=== PATIENT | male | born 1950 | race Caucasian/White ===

== ENCOUNTER 2019-11-20 13:07 | Observation (INO) ==
[2019-11-20 13:27] LABS: Basophils # 0.1 K/mm3 (0-0.2); Basophils % 0.4 % (0.1-2.0); Eosinophils # 0.3 K/mm3 (0.0-0.4); Eosinophils % 2.1 % (0.1-12.0); Hematocrit 33.3 % (42.0-52.0); Lymphocytes # 2.4 K/mm3 (0.7-4.5); Lymphocytes % 17.2 % (10-50); Mean Corpuscular HGB Conc 32.9 g/dL (31.8-35.4); Mean Platelet Volume 8.9 fl (7.4-10.4); Monocytes # 0.6 K/mm3 (0.1-1.0); Monocytes % 3.9 % (1.7-9.3); Neutrophils # 10.8 K/mm3 (1.8-7.8); Neutrophils % 76.3 % (37.0-80.0); Platelet Count 248 K/mm3 (142-424); Red Blood Count 3.44 M/mm3 (4.60-6.20); Red Cell Distribution Width 15.9 % (11.5-17.5); White Blood Count 14.2 K/mm3 (4.8-10.8)
[2019-11-20 13:28] LABS: Appearance,Urine TURBID (Clear); Bilirubin,Urine Negative (Negative); Blood, Urine Negative (Negative); Color,Urine YELLOW (Yellow); Glucose,Urine (UA) Negative (Negative); Ketones,Urine Negative (Negative); Leukocyte Esterase,Urine 3+ (Negative); Microscopic, Urine URINE MICROSCOPIC (MICROSCOPIC); PH,Urine 8.5 (5.0-8.5); Protein,Urine 3+ (Negative); Specific Gravity, Urine 1.015 (1.005-1.030); Urobilinogen,Urine 0.2 EU/dl (0.2)
[2019-11-20 13:35] LABS: Calcium 9.6 mg/dl (8.4-10.2)
[2019-11-20 13:38] LABS: Amorphous Sediment,Urine 1+ /lpf; Bacteria,Urine 2+ /lpf; Squamous Epithelial Cell,Urine Occasional #/hpf (0-5)
[2019-11-20 13:40] LABS: Barbiturates Screen,Urine Negative ng/ml (<200)
[2019-11-20 13:41] LABS: Benzodiazepines Screen,Urine Negative ng/ml (<200)
[2019-11-20 13:42] LABS: Amphetamine/Metha Screen,Urine Negative ng/ml (<1000); Methadone Screen,Urine Negative ng/ml (<300)
[2019-11-20 13:43] LABS: Bilirubin,Unconjugated 0.5 mg/dL (0.0-1.1); Cannabinoid Screen,Urine Negative ng/ml (<50); Cocaine Screen,Urine Negative ng/ml (<300)
[2019-11-20 13:44] LABS: Bilirubin,Direct 0.1 mg/dl (0.0-0.4); Bilirubin,Indirect 0.6 mg/dL (0.0-0.9); Bilirubin,Total 0.7 mg/dl (0.2-1.3); Opiate Screen,Urine Negative ng/ml (<300); Total Protein,Serum 6.5 g/dl (6.3-8.2)
[2019-11-20 13:45] LABS: Phencyclidine Screen,Urine Negative ng/ml (<25)
--- NOTE | 2019-11-20 15:12 | Emergency Department Note ---
ED Disposition Clinical Impression: Anemia, Sepsis, Dehydration, Suspected COVID-19 virus infection Disposition: Admitted as Observation Condition on Discharge: Good Additional Instructions: Spoke to Dr. Chery for admission for this patient. Referrals: Provider,Referral, [Primary Care Provider] - - Critical Care Critical Care Time: Yes (25) Attestation: On 11/20/19, the high probability of a clinically significant, sudden or life threatening deterioration of the following system(s) required my full and direct attention, intervention and personal management. The time I documented below is in addition to time spent performing reported procedures but includes the fol lowing listed in this critical care notation. Vital system(s) involved:: Circulatory Failure, Shock (Septic) My critical care processes included: Assessment & monitoring of V/S, Initial and Re-exams, Data Review/Interpretation, Coordinating Care Medical Decision Making - Medical Records Medical records reviewed: Yes: I reviewed the patient's medical records. - [place] Inquiry Pt receiving controlled substance: No Vital Signs: 11/20/19 13:07 11/20/19 13:37 11/20/19 14:07 Pulse Rate [Right Radial] 88 100 H 72 Respiratory Rate 17 17 18 Blood Pressure [Right Arm] 101/56 L 128/69 117/56 L Blood Pressure Mean [Right Arm] 71 88 76 Blood Pressure Source [Right Arm] Automatic Cuff Automatic Cuff Blood Pressure Position [Right Arm] Supine Supine 02 Sat by Pulse Oximetry 98 100 100 Oxygen Delivery Method Room Air Room Air Room Air 11/20/19 15:08 Pulse Rate [Right Radial] 93 H Respiratory Rate 18 Blood Pressure [Right Arm] 132/78 Blood Pressure Mean [Right Arm] 96 Blood Pressure Source [Right Arm] Automatic Cuff Blood Pressure Position [Right Arm] Supine 02 Sat by Pulse Oximetry 97 Oxygen Delivery Method Room Air - Lab Data Lab results reviewed: Yes: I reviewed the patient's lab results. Lab Results 11/20/19 13:10: Urine Color Yellow, Urine Appearance Turbid, Urine pH 8.5, Ur Specific [place] 1.015, Urine Protein 3+, Urine Glucose (UA) Negative, Urine Ketones Negative, Urine Blood Negative, Urine Nitrate Positive, Urine Bilirubin Negative, Urine Urobilinogen 0.2, Ur Leukocyte Esterase 3+ A, Urine RBC None, Urine WBC 10-20, Ur Squamous Epith Cells Occasional, Amorphous Sediment 1+, Urine Bacteria 2+ 11/20/19 13:10: WBC 14.2 H, RBC 3.44 L, Hgb 11.0 L, Hct 33.3 L, MCV 97.0 H, MCH 31.9 H, MCHC 32.9, RDW 15.9, Plt Count 248, MPV 8.9, Neut % (Auto) 76.3, Lymph % (Auto) 17.2, [place] % (Auto) 3.9, Eos % (Auto) 2.1, Baso % (Auto) 0.4, Neut # (Auto) 10.8 H, Lymph # (Auto) 2.4, [place] # (Auto) 0.6, Eos # (Auto) 0.3, Baso # (Auto) 0.1 11/20/19 13:10: Sodium 135 L, Potassium 5.0, Chloride 103, Carbon Dioxide 24, Anion Gap 13.0, BUN 38 H, Creatinine 1.60 H, Estimated Creat Clear 50, Estimated GFR 43 L, Est GFR ( Amer) 52 L, Glucose 288 H, Calcium 9.6, Troponin I 0.02 11/20/19 13:10: Lactate 2.4 H 11/20/19 13:10: Influenza Type A Ag Negative, Influenza Type B Ag Negative 11/20/19 13:10: Total Bilirubin 0.7, Direct Bilirubin 0.1, Conjugated Bilirubin 0.0, Indirect Bilirubin 0.6, Unconjugated Bilirubin 0.5, AST 26, ALT 30, Alkaline Phosphatase 222 H, Total Protein 6.5, Albumin 3.0 L 11/20/19 13:10: Urine Opiates Screen Negative, Urine Methadone Screen Negative, Ur Barbituates Screen Negative, Ur Phencyclidine Scrn Negative, Ur Amphetamines Screen Negative, U Benzodiazepines Scrn Negative, Urine Cocaine Screen Negative, U Marijuana (THC) Screen Negative 11/20/19 13:10: Plasma/Serum Alcohol < 10 11/20/19 13:10: ESR 71 H 11/20/19 13:10: Hemoglobin A1c 7.9 H 11/20/19 13:10: C-Reactive Protein 2.4 Result diagrams: 11/20/19 13:10 11/20/19 13:10 Orders (Tests/Meds): ED MEDICATIONS Generic Name Dose Route Start Last Admin Trade Name Freq PRN Reason Stop Dose Admin Sodium Chloride 1,000 mls @ 999 mls/hr 11/20/19 15:00 11/20/19 14:54 Sod Chlor 0.9% 1000ml Bag IV 11/20/19 16:00 999 mls/hr .Q1H1M BONNIE Administration Ceftriaxone Sodium 1 gm/ 50 mls @ 100 mls/hr 11/20/19 14:53 11/20/19 14:54 Sodium Chloride IV 11/20/19 15:22 100 mls/hr ONCE ONE Administration Protocol Discontinued Medications Generic Name Dose Route Start Last Admin Trade Name Belen PRN Reason Stop Dose Admin Sodium Chloride 500 mls @ 999 mls/hr 11/20/19 13:15 11/20/19 15:01 Sod Chlor 0.9% 1000ml Bag IV 11/20/19 14:15 999 mls/hr .Q31M BONNIE Administration ORDERS Category Date Time Status Troponin I Q3H Lab 11/20/19 16:15 Ordered Troponin I Q3H Lab 11/20/19 19:15 Ordered Blood Culture Stat Micro 11/20/19 14:59 Ordered Urine Culture Stat Micro 11/20/19 13:10 Received - CT Data CT Scan: Head, Abdomen, Pelvis, Chest (Head CT had no acute findings. Chest CT had a groundglass opacities in the periphery on the left lung and a pneumonitis possible in the right lung.) Time Received: 14:00 Preliminary Findings: Abnormal - ECG Data Tracing #1 I reviewed this ECG and interpreted as documented below: Arrhythmias present: sinus tach - Tissue Perfus/Sepsis Re-Eval Sepsis Re-Evaluation Performed: Yes Date Performed: 11/20/19 Time Performed: 15:18 General Adult HPI - General Chief complaint: Weakness Stated complaint: Weakness Time Seen by Provider: 11/20/19 15:00 Mode of Arrival: Wheelchair Source of Information: Patient, Relative Limitations: Altered Mental Status Description of Symptoms (Recalled from ER Triage Doc. by RN): pt reports to ed from dr yeager office with c/o generalize weakness that began today around approx 1100 upon reporting to follow up visit. pt is awake and alert, diaphoretic, pale and with generalized weakness. - History of Present Illness HPI narrative: 69-year-old pleasant gentleman presents to the ED after he was seen in his podiatry office earlier today. He was sent over here due to he was almost unres ponsive and his blood pressure was 60/[address] Palmer's office. Patient was seen Dr. Yeager for a recent amputated toe. The amputation was done approximately 4 weeks ago. This was a traditional follow-up visit. Here in the ED patient is still hypotensive mildly tachycardic however it appears that he is not perfusing well to extremities they are very cold and pale. He is responsive to painful stimuli. The patient's family stated that he is not been feeling well for a few days. They describe him feeling just achy and general malaise. They also states that he has had diarrhea and possible some coughing that is been nonproductive. When I did a heart sternal rub on the patient he was able to answer some questions for me I asked if he was have any pain and he said no. I asked him if he felt short of breath and he says that he has mild shortness of breath. Patient's family told me that he only has diabetes however he is on several meds. They also mentioned that his ejection fraction may have been low at one point. Unknown at this point if patient is febrile given the fact he has been on antipyretics. Patient was discharged from the halfway a few weeks prior. He has had home health nurse come out 2-3 times a week since then. - Related Data Home Medications Medication Instructions Recorded Confirmed Insulin Glargine,Hum.rec.anlog 25 units SQ DAILY 11/20/19 11/20/19 [Lantus Solostar 100 Units/mL 3mL flexpen] aspirin 81 mg tablet,delayed 81 mg PO DAILY tab 11/20/19 11/20/19 release atorvastatin 40 mg tablet 40 mg PO DAILY tab 11/20/19 11/20/19 bumetanide 1 mg tablet 1 mg PO DAILY tab 11/20/19 11/20/19 clopidogrel 75 mg tablet 75 mg PO DAILY tab 11/20/19 11/20/19 pantoprazole 40 mg tablet,delayed 40 mg PO DAILY 11/20/19 11/20/19 release potassium chloride 10 mEq 10 meq PO DAILY 11/20/19 11/20/19 tablet,extended release(part/cryst) tamsulosin 0.4 mg capsule 0.4 mg PO BID 11/20/19 11/20/19 Allergies Allergy/AdvReac Type Severity Reaction Status Date / Time No Known Allergies Allergy Unverified 11/20/19 11:50 [facility] History - Hepatitis A Screen Drug use history?: No High risk sexual behaviors?: No History of sexually transmitted infection?: No Currently employed?: No Childcare worker?: No Do you have indoor plumbing?: Yes Do you have electricity?: Yes Attestation statement:: This patient has been screened for Hepatitis A risk factors. 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 S/P arthrectomy and balloon angioplasty of the left leg 09/2019 - Social History Smoking Status: Former smoker Alcohol Intake: never Occupational Status: disabled Family Hx:: Diabetes, Hypertension ROS Obtained: Yes All systems reviewed & no additional complaints - Constitutional Constitutional: Reports system reviewed and no additional complaints, except as docu - Eyes Eyes: Reports system reviewed and no additional complaints, except as docu - ENT Ears, Nose, Mouth, and Throat: Reports system reviewed and no additional complaints, except as docu - Cardiovascular Cardiovascular: Reports system reviewed and no additional complaints, except as docu - Respiratory Respiratory: Yes system reviewed and no additional complaints, except as docu - Gastrointestinal Gastrointestingal: Reports: system reviewed and no additional complaints, except as docu, loose stools. Denies: abdominal pain - Genitourinary Male Genitourinary: Reports system reviewed and no additional complaints, except as docu - Musculoskeletal Musculoskeletal: Reports system reviewed and no additional complaints, except as docu - Integumentary/Breasts Skin/Breast: Reports system reviewed and no additional complaints, except as docu - Neurologic Neurologic: Reports system reviewed and no additional complaints, except as docu - Endocrine Endocrine: Reports system reviewed and no additional complaints, except as docu - Hematologic/Lymphatic Henatologic/Lymphatic: Reports system reviewed and no additional complaints, except as docu - Allergic/Immunologic Allergic/Immunologic: Reports system reviewed and no additional complaints, except as docu Physical Exam - General General appearance: alert, lethargic, in distress, cachectic - Head Head exam: atraumatic, normocephalic - Eye Eye exam: Present: normal appearance, PERRL, EOMI - ENT ENT exam: Present: normal exam - Neck Neck exam: Present: normal inspection - Chest Chest inspection: Present: normal inspection, symmetric chest wall rise - Respiratory Respiratory exam: Present: normal lung sounds bilaterally, other (Mild wheezing in bilateral bases expiratory) - Cardiovascular Cardiovascular exam: Present: tachycardia. Absent: regular rate - Abdominal Exam Abdominal exam: Present: soft - Extremities Exam Extremities exam: Present: other (Cold pale extremities) - Back Exam Back exam: Present: normal inspection - Neurological Exam Neurological exam: Present: other (Alert with a hard sternal rub) - Psychiatric Psychiatric exam: Present: normal affect - Skin Skin exam: Present: pallor, other (Cold) - Lymphatic Lymphatic Findings: no adenopathy
--- NOTE | 2019-11-20 15:40 | Pharmacy Consult Notes ---
[facility] Pharmacy VTE Monitoring - Patient Demographics Admission date: 11/20/19 Report Date: 11/20/19 Time: 15:40 Allergies/Adverse Reactions: Patient Allergies No Known Allergies Allergy (Unverified 11/20/19 11:50) Height: 1.85 m Weight: 79.379 kg Patient Problems: Current Active Problems Anemia (Acute) Sepsis (Acute) Dehydration (Acute) Suspected COVID-19 virus infection (Acute) - VTE Risk Labs: VTE Related Lab Results Hgb 11.0 g/dL (14.1-18.0) L 11/20/19 13:10 Hct 33.3 % (42.0-52.0) L 11/20/19 13:10 Plt Count 248 K/mm3 (142-424) 11/20/19 13:10 BUN 38 mg/dl (9-20) H 11/20/19 13:10 Creatinine 1.60 mg/dl (0.66-1.25) H 11/20/19 13:10 Estimated Creat Clear 50 mL/min (50-200) 11/20/19 13:10 - Prophylaxis VTE Prophylaxis Ordered?: Yes Types of VTE Prophylaxis: TEDS Knee High Location of Applied Device: Bilateral Lower Extremeties - VTE Diagnosis Confirmed Treatment or plan recommended: Continue Current Treatment
--- NOTE | 2019-11-20 20:01 | History & Physical Report ---
*Admission Date: 11/20/19 *Chief complaint: Hypotension and sepsis *History of present illness: 69-year-old white male with history of systolic congestive heart failure with depressed ejection fraction per family, peripheral arterial disease with recent stenting to the left lower extremity but also with gangrene status post recent forefoot amputation about 6 weeks ago who was in a rehabilitation facility in [facility] but apparently was not participate in rehabilitation and was going to be discharged and his family, 2 sons who live in [facility], came and got him and brought him to their home. About 2 weeks ago he was seen by Dr. Hebert in his office in [place]. Dr. Hebert apparently ordered home health care, and home health care became concerned about his foot wound over the last 3 or 4 days and made a referral through Dr. Hebert to Dr. Flores in our podiatry clinic here who evaluated the patient today during the evaluation patient was significantly hypotensive with blood pressure in the 60s. Transition to the ER. Found to have hypotension that responded very nicely to a fairly low-grade fluid bolus, found to have leukocytosis, and evidence of sepsis. CT scan of head unrevealing, labs were essentially unrevealing except for hyperglycemia-patient is a known diabetic-along with acute kidney injury-unknown baseline creatinine. CT scanning of the chest was read as "groundglass opacity in the right lower lobe probably due to atelectasis" and the emergency department physician swab the patient for coronavirus 19 infection and he was admitted to isolation bed for negative pressure and further therapy. I was contacted to admit the patient given the ER's impression that he was "unattached" and I requested broad-spectrum antibiotics given his recent healthcare exposure, low-dose IV fluids and an echocardiogram to assess his volume status. When I examined patient in the unit and then called his son he informed me about his attachment to Dr. Hebert and the history leading up to the event. Records have been requested from the hospital in [place] where he recently had his procedures done and had his amputation. 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 He denies pain, Denies shortness of air. Reports that he is a little bit fatigued, and reports some mild nausea. Otherwise 10 point review of systems negative. Meds Home Medications Medication Instructions Recorded Confirmed Type Insulin Glargine,Hum.rec.anlog 25 units SQ HS 11/20/19 11/20/19 History [Lantus Solostar 100 Units/mL 3mL flexpen] Sucralfate [Sucralfate 1gm 1 gm PO ACHS 11/20/19 11/20/19 History Tab] aspirin 81 mg tablet,delayed 81 mg PO DAILY tab 11/20/19 11/20/19 History release atorvastatin 40 mg tablet 40 mg PO HS tab 11/20/19 11/20/19 History bumetanide 1 mg tablet 3 mg PO BID tab 11/20/19 11/20/19 History clopidogrel 75 mg tablet 75 mg PO DAILY tab 11/20/19 11/20/19 History pantoprazole 40 mg tablet,delayed 40 mg PO BID 11/20/19 11/20/19 History release potassium chloride 10 mEq 10 meq PO DAILY 11/20/19 11/20/19 History tablet,extended release(part/cryst) tamsulosin 0.4 mg capsule 0.8 mg PO DAILY 11/20/19 11/20/19 History Allergies Allergy/AdvReac Type Severity Reaction Status Date / Time No Known Allergies Allergy Unverified 11/20/19 11:50 Exam Vital signs and Labs for Last 24 Hours: Temp Pulse Resp BP Pulse Ox 97.1 F L 90 18 132/78 100 11/20/19 19:10 11/20/19 18:38 11/20/19 16:15 11/20/19 16:15 11/20/19 15:38 Laboratory Results - last 24 hr 11/20/19 13:10: Urine Color Yellow, Urine Appearance Turbid, Urine pH 8.5, Ur Specific [place] 1.015, Urine Protein 3+, Urine Glucose (UA) Negative, Urine Ketones Negative, Urine Blood Negative, Urine Nitrate Positive, Urine Bilirubin Negative, Urine Urobilinogen 0.2, Ur Leukocyte Esterase 3+ A, Urine RBC None, Urine WBC 10-20, Ur Squamous Epith Cells Occasional, Amorphous Sediment 1+, Urine Bacteria 2+ 11/20/19 13:10: WBC 14.2 H, RBC 3.44 L, Hgb 11.0 L, Hct 33.3 L, MCV 97.0 H, MCH 31.9 H, MCHC 32.9, RDW 15.9, Plt Count 248, MPV 8.9, Neut % (Auto) 76.3, Lymph % (Auto) 17.2, [place] % (Auto) 3.9, Eos % (Auto) 2.1, Baso % (Auto) 0.4, Neut # (Auto) 10.8 H, Lymph # (Auto) 2.4, [place] # (Auto) 0.6, Eos # (Auto) 0.3, Baso # (Auto) 0.1 11/20/19 13:10: Sodium 135 L, Potassium 5.0, Chloride 103, Carbon Dioxide 24, Anion Gap 13.0, BUN 38 H, Creatinine 1.60 H, Estimated Creat Clear 50, Estimated GFR 43 L, Est GFR ( Amer) 52 L, Glucose 288 H, Calcium 9.6, Troponin I 0.02 11/20/19 13:10: Lactate 2.4 H 11/20/19 13:10: Influenza Type A Ag Negative, Influenza Type B Ag Negative 11/20/19 13:10: Total Bilirubin 0.7, Direct Bilirubin 0.1, Conjugated Bilirubin 0.0, Indirect Bilirubin 0.6, Unconjugated Bilirubin 0.5, AST 26, ALT 30, Alkaline Phosphatase 222 H, Total Protein 6.5, Albumin 3.0 L 11/20/19 13:10: Urine Opiates Screen Negative, Urine Methadone Screen Negative, Ur Barbituates Screen Negative, Ur Phencyclidine Scrn Negative, Ur Amphetamines Screen Negative, U Benzodiazepines Scrn Negative, Urine Cocaine Screen Negative, U Marijuana (THC) Screen Negative 11/20/19 13:10: Plasma/Serum Alcohol < 10 11/20/19 13:10: ESR 71 H 11/20/19 13:10: Hemoglobin A1c 7.9 H 11/20/19 13:10: C-Reactive Protein 2.4 11/20/19 17:40: Lactate 1.5 I & O for Last 24 hours: Intake & Output 11/18/19 11/19/19 11/20/19 11/21/19 11:59 11:59 11:59 11:59 Output Total Balance - Weight 171 lb Narrative: Pleasant, awake, alert, vital signs have normalized. Oropharynx clear. No JVD. Lungs have good air movement. Heart rate regular with flow murmur. Abdomen soft nontender. Upper extremities with good pulses. Lower extremities with bandage over the forefoot amputation of the left foot which is clean and dry and intact. Right leg has diminished but present pulses. No edema. Neurologic exam nonfocal Assessment and Plan (1) Anemia Current visit: Yes Status: Acute Category: Medical Code(s): D64.9 - Anemia, unspecified (2) Dehydration Current visit: Yes Status: Acute Category: Medical Code(s): E86.0 - Dehydration (3) Sepsis Current visit: Yes Status: Acute Category: Medical Code(s): A41.9 - Sepsis, unspecified organism Recent halfway stay broad-spectrum antibiotics, blood and urine cultures. Continue sepsis protocol. Patient does not meet criteria for pressors at this point, blood pressure is responded nicely to fluid bolusing. 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 (5) PAD (peripheral artery disease) Current visit: No Status: Chronic Category: Medical Code(s): I73.9 - Peripheral vascular disease, unspecified (6) Wound dehiscence, surgical Current visit: No Status: Chronic Qualifiers: Encounter type: sequela Qualified Code(s): T81.31XS - Disruption of external operation (surgical) wound, not elsewhere classified, sequela Category: Medical Code(s): T81.31XA - Disruption of external operation (surgical) wound, not elsewhere classified, initial encounter DVT prophylaxis. Follow-up with podiatry and wound care as indicated - Assessment and plan all Dx Assessment and Plan for all problems:: Spent over 1 hour reviewing old records, requesting old records and discussing case with family. I reviewed the films personally. I do not feel that patient's lung exam, clinical history or CT scan which to me shows extremely minimal atelectasis- would be indicative of Covid 19/[facility] coronavirus infection. However we will send off a swab and make sure before getting patient out of negative pressure isolation.
--- NOTE | 2019-11-21 08:38 | Progress Note ---
Internal Medicine - PN: Subj *Date: 11/21/19 *Time: 08:36 Interval history: Overnight patient has done very nicely. He is responded to low-dose fluid administration and blood pressures are acceptable. I have had a chance to review old records from his previous hospitalization. Exam Vital signs and Labs for Last 24 Hours: Temp Pulse Resp BP Pulse Ox 98.3 F 88 18 145/75 H 100 11/21/19 07:26 11/21/19 07:26 11/21/19 07:26 11/21/19 07:26 11/21/19 07:26 Laboratory Results - last 24 hr 11/20/19 13:10: Urine Color Yellow, Urine Appearance Turbid, Urine pH 8.5, Ur Specific [place] 1.015, Urine Protein 3+, Urine Glucose (UA) Negative, Urine Ketones Negative, Urine Blood Negative, Urine Nitrate Positive, Urine Bilirubin Negative, Urine Urobilinogen 0.2, Ur Leukocyte Esterase 3+ A, Urine RBC None, Urine WBC 10-20, Ur Squamous Epith Cells Occasional, Amorphous Sediment 1+, Urine Bacteria 2+ 11/20/19 13:10: WBC 14.2 H, RBC 3.44 L, Hgb 11.0 L, Hct 33.3 L, MCV 97.0 H, MCH 31.9 H, MCHC 32.9, RDW 15.9, Plt Count 248, MPV 8.9, Neut % (Auto) 76.3, Lymph % (Auto) 17.2, [place] % (Auto) 3.9, Eos % (Auto) 2.1, Baso % (Auto) 0.4, Neut # (Auto) 10.8 H, Lymph # (Auto) 2.4, [place] # (Auto) 0.6, Eos # (Auto) 0.3, Baso # (Auto) 0.1 11/20/19 13:10: Sodium 135 L, Potassium 5.0, Chloride 103, Carbon Dioxide 24, Anion Gap 13.0, BUN 38 H, Creatinine 1.60 H, Estimated Creat Clear 50, Estimated GFR 43 L, Est GFR ( Amer) 52 L, Glucose 288 H, Calcium 9.6, Troponin I 0.02 11/20/19 13:10: Lactate 2.4 H 11/20/19 13:10: Influenza Type A Ag Negative, Influenza Type B Ag Negative 11/20/19 13:10: Total Bilirubin 0.7, Direct Bilirubin 0.1, Conjugated Bilirubin 0.0, Indirect Bilirubin 0.6, Unconjugated Bilirubin 0.5, AST 26, ALT 30, Alkaline Phosphatase 222 H, Total Protein 6.5, Albumin 3.0 L 11/20/19 13:10: Urine Opiates Screen Negative, Urine Methadone Screen Negative, Ur Barbituates Screen Negative, Ur Phencyclidine Scrn Negative, Ur Amphetamines Screen Negative, U Benzodiazepines Scrn Negative, Urine Cocaine Screen Negative, U Marijuana (THC) Screen Negative 11/20/19 13:10: Plasma/Serum Alcohol < 10 11/20/19 13:10: ESR 71 H 11/20/19 13:10: Hemoglobin A1c 7.9 H 11/20/19 13:10: C-Reactive Protein 2.4 11/20/19 17:40: Lactate 1.5 I & O for Last 24 hours: Intake & Output 11/18/19 11/19/19 11/20/19 11/21/19 11:59 11:59 11:59 11:59 Intake Total 1368 / 1368 Output Total 501 / 501 Balance 867 / 867 Weight 171 lb Microbiology Reports for the Last 24 Hours: Microbiology 11/20/19 13:10 Urine,Clean Catch Urine Culture - Preliminary Gram Negative Rods Narrative: Patient is awake, alert, oriented x3. Somewhat grumpy about hospital food in general. Oropharynx dry but clear, no JVD. He appears older than his stated age with his wizened appearance and gordillo clark and hair. Lungs are clear, good expansion. Heart rate regular. No murmurs or gallops. Abdomen soft, scaphoid. Feet show evidence of old amputation on the right foot, fresh amputation of the left with clean/dry/intact bandage. Please see nurses pictures for details. Diminished pulses in both lower extremities. Neurologic exam intact. 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 Qualified Code(s): E11.40 - Type 2 diabetes mellitus with diabetic neuropathy, unspecified; Z79.4 - community health advisor (current) use of insulin Category: Medical Code(s): E11.40 - Type 2 diabetes mellitus with diabetic neuropathy, unspecified (5) PAD (peripheral artery disease) Current visit: No Status: Chronic Category: Medical Code(s): I73.9 - Peripheral vascular disease, unspecified (6) Wound dehiscence, surgical Current visit: No Status: Chronic Qualifiers: Encounter type: sequela Qualified Code(s): T81.31XS - Disruption of external operation (surgical) wound, not elsewhere classified, sequela Category: Medical Code(s): T81.31XA - Disruption of external operation (surgical) wound, not elsewhere classified, initial encounter - Assessment and plan all Dx Assessment and Plan for all problems:: Patient is nicely improved. Urine is growing greater than 100,000 colonies of gram-negative rods. This is the source of his mild sepsis. We will continue antibiotics and await culture identification. Probably home tomorrow. Remains in respiratory isolation for the very low probability of coronavirus 19 infection.
--- NOTE | 2019-11-21 11:38 | Cardiology Report ---
APPROVED REPORT EXAM: Comprehensive 2D, Doppler, and color-flow Echocardiogram Ironer Hand: Nelli Daugherty CRT Ht: 6 ft 1 in Wt: 175lbs BSA: 2.03 BP: 117/56 mmHg Indications: Diabetes, Reduced EF per pt family, suspected Covid 19, PVD 2D Dimensions LVOT 2.29 cm (M/F) 1.5-2.5 M-Mode Dimensions RVDd 2.38 cm (0.9-2.6)LVDd 5.21 cm (3.5-5.7) LVDs 4.30 cm (3.5-5.7)IVSd 1.79 cm (0.6-1.1) PWd 0.91 cm (0.6-1.1)EF (Teich) 36.10% FS 17.50% EDV (Teich) 130.10 mL ESV (Teich) 83.10 mL Left Ventricle Left atrium is mildly enlarged, left ventricle is normal size, mild concentric left ventricular hypertrophy, visually estimated ejection fraction 40 to 45%, there is mild left ventricular global hypokinesis. Doppler evidence of raise left ventricular end-diastolic pressure, diastolic parameters are inconclusive. Right Ventricle Right atrium right ventricular normal size and contractility. Aortic Valve Aortic valve is minimally thickened and fibrosed. There is no aortic stenosis or aortic insufficiency. Mitral Valve Mitral valve is grossly normal, there is mild mitral regurgitation. Tricuspid Valve Tricuspid valve is grossly normal, there is mild tricuspid regurgitation. Tricuspid regurgitation jet velocity is inadequate for calculation of the right ventricular systolic pressure. Pulmonic Valve Pulmonic valve is poorly visualized., There is mild pulmonic insufficiency. Great Vessels Aortic root is normal size. Pericardium No significant pericardial effusion noted. Conclusion 1. Mildly enlarged left atrium, normal left ventricular size, mild concentric left ventricular hypertrophy, visually estimated ejection fraction 40 to 45%, left ventricle is mildly globally hypokinetic, diastolic parameters are inconclusive, Doppler evidence of raise left ventricular end-diastolic pressure. 2. Mild mitral and tricuspid regurgitation. 3. No significant pericardial effusion noted. Electronically signed by : Remington Berger, 11/21/2019 11:37:49
--- NOTE | 2019-11-22 08:32 | Discharge Summary ---
General - General Admission date:: 11/20/19 Discharge date: 11/22/19 HPI HPI: 69-year-old white male with history of systolic congestive heart failure with depressed ejection fraction per family, peripheral arterial disease with recent stenting to the left lower extremity but also with gangrene status post recent forefoot amputation about 6 weeks ago who was in a rehabilitation facility in [facility] but apparently was not participate in rehabilitation and was going to be discharged and his family, 2 sons who live in [facility], came and got him and brought him to their home. About 2 weeks ago he was seen by Dr. Hebert in his office in [place]. Dr. Hebert apparently ordered home health care, and home health care became concerned about his foot wound over the last 3 or 4 days and made a referral through Dr. Hebert to Dr. Flores in our podiatry clinic here who evaluated the patient today during the evaluation patient was significantly hypotensive with blood pressure in the 60s. Transition to the ER. Found to have hypotension that responded very nicely to a fairly low-grade fluid bolus, found to have leukocytosis, and evidence of sepsis. CT scan of head unrevealing, labs were essentially unrevealing except for hyperglycemia-patient is a known diabetic-along with acute kidney injury-unknown baseline creatinine. CT scanning of the chest was read as "groundglass opacity in the right lower lobe probably due to atelectasis" and the emergency department physician swab the patient for coronavirus 19 infection and he was admitted to isolation bed for negative pressure and further therapy. I was contacted to admit the patient given the ER's impression that he was "unattached" and I requested broad-spectrum antibiotics given his recent healthcare exposure, low-dose IV fluids and an echocardiogram to assess his volume status. When I examined patient in the unit and then called his son he informed me about his attachment to Dr. Hebert and the history leading up to the event. Records have been requested from the hospital in [place] where he recently had his procedures done and had his amputation. Hospital Course Hospital Course: Patient was admitted to negative pressure isolation room because of his pending coronavirus test. Testing for coronavirus 19 was negative by PCR testing. As noted in HPI I reviewed CT scan I do not feel he has any kind of groundglass opacity. Respiratory symptoms were never an issue. He was moved out of the negative pressure room once negative testing came back. Blood cultures and urine cultures were done because of the patient's sepsis, urine culture positive for Providencia species with multiple resistance patterns to Macrobid, and quinolones. They are sensitive to cephalosporins, fortunately. Patient continued on intravenous broad-spectrum antibiotics because of his recent healthcare/fdc exposure. This morning he is doing much better, eating well, in good spirits. Plan will be to discharge patient. He will need follow-up with Dr. Hebert at his family practice office in [place]. He will continue home health care as per [place] home health care services. He will continue wound care, and follow-up with Dr. Yeager's office. In regards to his urinary tract infection I will prescribe Omnicef 300 twice daily for 5 days. He will need BMP and CBC on return to Dr. Hebert's office. In regards to his systolic CHF, his presentation with hypovolemia and hypotension is concerning. He is on a significant dose of Bumex, and I recommended that be cut down to 1 mg twice daily. He is currently on 3 mg twice daily. Ejection fraction here at [facility] had improved from his reported 25% up to 35%. Obviously he will need to have volume status monitored carefully in the outpatient setting. I discussed this with his son Bronson, who will come from [place] today to pick him up to return home. Objective Vital signs: Temp Pulse Resp BP Pulse Ox 97.7 F 86 16 130/70 100 11/22/19 08:00 11/22/19 08:00 11/22/19 08:00 11/22/19 08:00 11/22/19 08:00 Narrative: Patient is alert, pleasant, talkative, no complaints of pain. He notes that the "stinging" in his catheter has gone away. Apparently the stinging sensation started when the catheter was changed by home health a couple of weeks ago. Lungs are clear, heart rate regular. Oropharynx clear, no JVD. Otherwise ENT exam clear. Abdomen nontender, soft Neurologic examination nonfocal, significant loss of sensation in his feet. Vascular exam his feet is abnormal, previously noted wounds and old amputation sites as on admission. Results Labs on day of discharge: Labs from last 24 hours 11/22/19 11/21/19 11/21/19 05:09 23:54 20:30 POC Glucose 110 143 H 167 H COVID-19 ([facility]) 11/21/19 11/21/19 11/21/19 15:19 10:49 05:10 POC Glucose 155 H 133 H 119 H COVID-19 ([facility]) 11/20/19 11/20/19 11/20/19 19:54 16:52 15:42 POC Glucose 209 H 248 H COVID-19 ([facility]) Not detected DS: Diagnosis - Discharge Diagnosis (1) Anemia Status: Chronic (2) Dehydration Status: Resolved (3) Sepsis Status: Resolved (4) Diabetes mellitus with diabetic neuropathy Status: Chronic (5) PAD (peripheral artery disease) Status: Chronic (6) Wound dehiscence, surgical Status: Chronic (7) Systolic congestive heart failure Status: Acute Problem details: Ejection fraction 35%. Discharge Plan - Patient Discharge Instructions ACTIVITY: Continue current activity DIET: low salt diet Patient Instructions: Carbohydrate-Counting Diet, The Importance of Counting Carbs If You Have Diabetes - Follow up Plan Follow up with: Sebastian Hebert MD [Staff Physician] - 1 week Disposition: Home Health Service Home Medications: Home Medications Medication Instructions Recorded Confirmed Type Insulin Glargine,Hum.rec.anlog 25 units SQ HS 11/20/19 11/20/19 History [Lantus Solostar 100 Units/mL 3mL flexpen] Sucralfate [Sucralfate 1gm 1 gm PO ACHS 11/20/19 11/20/19 History Tab] aspirin 81 mg tablet,delayed 81 mg PO DAILY tab 11/20/19 11/20/19 History release atorvastatin 40 mg tablet 40 mg PO HS tab 11/20/19 11/20/19 History clopidogrel 75 mg tablet 75 mg PO DAILY tab 11/20/19 11/20/19 History pantoprazole 40 mg tablet,delayed 40 mg PO BID 11/20/19 11/20/19 History release potassium chloride 10 mEq 10 meq PO DAILY 11/20/19 11/20/19 History tablet,extended release(part/cryst) tamsulosin 0.4 mg capsule 0.8 mg PO DAILY 11/20/19 11/20/19 History Bumetanide 1 mg PO BID #60 tab 11/22/19 Rx Cefdinir [Omnicef 300mg Capsule] 300 mg PO BID #10 cap 11/22/19 Rx Prescriptions/Medication Reconciliation: New Cefdinir [Omnicef 300mg Capsule] 300 mg PO BID #10 cap Continued potassium chloride 10 mEq tablet,extended release(part/cryst) 10 meq PO DAILY pantoprazole 40 mg tablet,delayed release 40 mg PO BID atorvastatin 40 mg tablet 40 mg PO HS tab tamsulosin 0.4 mg capsule 0.8 mg PO DAILY aspirin 81 mg tablet,delayed release 81 mg PO DAILY tab clopidogrel 75 mg tablet 75 mg PO DAILY tab Insulin Glargine,Hum.rec.anlog [Lantus Solostar 100 Units/mL 3mL flexpen] 25 units SQ HS Sucralfate [Sucralfate 1gm Tab] 1 gm PO ACHS Changed Bumetanide 1 mg PO BID #60 tab - Problem Reconciliation Problems Reviewed?: Yes
--- NOTE | 2019-11-22 13:54 | Electrocardiograph Report ---
APPROVED REPORT Exam: Resting ECG HR:90 bpm ECG Measurements Heart Rate 90 AXES ME 182 P 77 QRSd 88 QRS 19 QT 366 T176 QTc 447 <Conclusion> Sinus rhythm with premature atrial complexes with aberrant conduction Inferior infarct, age undetermined Cannot rule out Anterior infarct, age undetermined Abnormal ECG Electronically signed by : Diaz Miles, 11/22/2019 13:53:39
== END 2019-11-22 14:00 | disposition home health service (06) ==
LOC: ER 13:07 → ICU 15:33 → INTOOBSV 16:16 → ICU 16:16 → 2ND 11-21 19:57
PROVIDERS: ADMIT Internal Medicine Adolescent Medicine; ATTEND Internal Medicine Adolescent Medicine
DX: E11.51 Type 2 diabetes mellitus with diabetic peripheral angiopathy without gangrene; E11.65 Type 2 diabetes mellitus with hyperglycemia; I25.10 Atherosclerotic heart disease of native coronary artery without angina pectoris; I50.21 Acute systolic (congestive) heart failure; Z89.432 Acquired absence of left foot; D64.9 Anemia, unspecified; A41.9 Sepsis, unspecified organism; I70.292 Other atherosclerosis of native arteries of extremities, left leg; T81.31XA Disruption of external operation (surgical) wound, not elsewhere classified, initial encounter; N39.0 Urinary tract infection, site not specified; E11.9 Type 2 diabetes mellitus without complications; E86.0 Dehydration; Z87.891 Personal history of nicotine dependence; Z79.4 Long term (current) use of insulin; Z79.899 Other long term (current) drug therapy
CPT/HCPCS: 70450; 71250; 74176; 80048; 80076; 80305; 81001; 82962; 83036; 83605; 84484; 85025; 85651; 86140; 87040; 87086; 87088; 87186; 87275; 87276; 87635; 93005; 93306; 93923; 96365; 96367; 99285; G0378; J1956; J2543; U0002

== ENCOUNTER → 2019-11-25 12:16 | Outpatient (CLI) | payer MEDICARE, SELFPAY ==
--- NOTE | 2019-11-25 12:23 | XR_ITS ---
PROCEDURE: XR FOOT WT BEARING RT 3V CLINICAL INDICATION: DM ulcers Diabetic foot ulcers COMPARISON: No exams were available for comparison FINDINGS: There are no previous exams available for comparison. There has been amputation at the proximal aspect of the 3rd 4th and 5th metatarsals. There is an ununited fracture at the distal aspect of the proximal phalanx of the 2nd digit. A small metallic foreign body which may represent a broken needle is noted in the subcutaneous tissues along the plantar aspect of the interphalangeal joint of the great toe. There is diffuse vascular calcification. Osteoarthritic changes are present at the talonavicular and navicular cuneiform joint and there is some demineralization of the subarticular portion of the talar dome IMPRESSION: 1. Prior amputation at the 3rd 4th and 5th metatarsals with degenerative changes. 2. Ununited fractured distal aspect of the proximal phalanx of the 2nd toe. 3. Foreign body along the plantar surface of the interphalangeal joint which may be due to broken off needle Dictated by: Henrry Cardenas MD 11/25/2019 13:09 Electronically signed by Henrry Cardenas MD in [place] 11/25/2019 13:09
--- NOTE | 2019-11-25 12:23 | XR_ITS ---
PROCEDURE: XR FOOT WT BEARING LT 3V CLINICAL INDICATION: DM ulcers Diabetes, ulceration COMPARISON: No exams were available for comparison FINDINGS: There are no previous exams available for comparison. The patient has had a prior transmetatarsal amputation. The amputation site of the 1st metatarsal has a somewhat jagged appearance. Soft tissue gas is present at this region as well. There is diffuse osteopenia. The remaining metatarsal amputation sites have a smooth appearance. There is diffuse osteopenia with generalized vascular calcification and mild osteoarthritic changes IMPRESSION: Status post transmetatarsal amputation. Irregular appearance of the amputation site at the 1st metatarsal. This could represent underlying osteomyelitis. There is adjacent soft tissue gas consistent with ulceration. Dictated by: Henrry Cardenas MD 11/25/2019 13:06 Electronically signed by Henrry Cardenas MD in [place] 11/25/2019 13:06
== END ==
PROVIDERS: PCP Family Medicine; Visit Provider Podiatrist
DX: Z51.89 Encounter for other specified aftercare (principal); E11.621 Type 2 diabetes mellitus with foot ulcer; L97.518 Non-pressure chronic ulcer of other part of right foot with other specified severity; R09.89 Other specified symptoms and signs involving the circulatory and respiratory systems; Z79.4 Long term (current) use of insulin
CPT/HCPCS: 73630; 87070; 87077; 87186; 87205

== ENCOUNTER → 2019-12-02 09:39 | Outpatient (CLI) | payer MEDICARE, SELFPAY ==
[2019-12-02 10:03] LABS: Basophils % 0.5 % (0.1-2.0); Eosinophils # 0.4 K/mm3 (0.0-0.4); Eosinophils % 5.8 % (0.1-12.0); Hematocrit 30.7 % (42.0-52.0); Hemoglobin 9.6 g/dL (14.1-18.0); Lymphocytes # 1.1 K/mm3 (0.7-4.5); Lymphocytes % 16.8 % (10-50); Mean Corpuscular HGB Conc 31.4 g/dL (31.8-35.4); Mean Corpuscular Hemoglobin 30.7 pg (27.0-31.2); Mean Corpuscular Volume 97.6 fl (80-94); Mean Platelet Volume 9.3 fl (7.4-10.4); Monocytes # 0.4 K/mm3 (0.1-1.0); Neutrophils # 4.8 K/mm3 (1.8-7.8); Neutrophils % 70.9 % (37.0-80.0); Platelet Count 313 K/mm3 (142-424); Red Blood Count 3.15 M/mm3 (4.60-6.20); Red Cell Distribution Width 17.3 % (11.5-17.5); White Blood Count 6.7 K/mm3 (4.8-10.8)
[2019-12-02 10:04] LABS: Chloride 101 mmol/L (98-107); Sodium 133 mmol/L (136-145)
[2019-12-02 10:06] LABS: Alanine Aminotransferase 15 U/L (12-78); Aspartate Amino Transferase 23 U/L (17-59); Blood Urea Nitrogen 22 mg/dl (9-20); Estimated Glomerular Filt Rate 51 ml/min (>60); GFR (African American) 61 ML/MIN (>60)
[2019-12-02 10:07] LABS: Albumin Level 2.9 g/dl (3.5-5.0); Albumin/Globulin Ratio 0.9 (1.1-1.8); Alkaline Phosphatase 114 U/L (38-126); Bilirubin,Total 0.6 mg/dl (0.2-1.3); Calcium 8.7 mg/dl (8.4-10.2); Carbon Dioxide 27 mmol/L (22.0-30.0); Globulin 3.3 g/dL (1.3-3.2); Glucose 155 mg/dl (74-100); Total Protein,Serum 6.2 g/dl (6.3-8.2)
--- NOTE | 2019-12-02 10:13 | MR_ITS ---
PROCEDURE: MR FOOT LT WO/W CON CLINICAL INDICATION: eval for osteomyelitis Recent surgery for osteomyelitis. Pain and swelling, wound dehiscence right lateral foot ulcer, diabetic ulcer, evaluate for osteomyelitis COMPARISON: XR FOOT WT BEARING RT 3V from 11/25/2019 XR FOOT WT BEARING LT 3V from 11/25/2019 TECHNIQUE: Routine multiplanar multi echo sequences are performed without and with gadolinium enhancement. FINDINGS: This exam is very limited technically. The patient was not able to be properly position within the choroidal due to his current limitations. There has been a prior amputation at the proximal transmetatarsal region. Radiograph demonstrated an irregular appearance at the amputation site of the 1st metatarsal. There is dropout of signal at the stump of the amputation site. This particularly affects the region of the distal aspect of the 4th and 5th metatarsals with the distal aspect of the bony stump is not delineated. There is some irregularity of the amputation site at the 1st and 2nd metatarsal but no abnormal bone marrow edema that would suggest osteomyelitis. Soft tissue swelling is present at the amputation site. Of the visualized structures, there is no evidence of abscess. IMPRESSION: Limited exam as detailed above with dropout of signal along the stump of the amputation greatest at the 3rd 4th and 5th metatarsal region. The distal aspect of the remaining 3rd 4th and 5th metatarsals are not adequately demonstrated on the exam. Soft tissues at this area are also not demonstrated. The patient was not able to be properly position within the coil for adequate visualization. There is cellulitis suspected at the amputation stump at the 1st and 2nd metatarsals but no convincing evidence of osteomyelitis. If there is suspected osteomyelitis at the 3rd 4th and 5th metatarsals then, three-phase bone scan may provide further evaluation. Dictated by: Henrry Cardenas MD 12/03/2019 14:34 Electronically signed by Henrry Cardenas MD in [place] 12/03/2019 14:34
[2019-12-02 10:15] LABS: Anion Gap 8.8 mEq/L (5-15); Potassium 3.8 mmoL/L (3.5-5.1)
== END ==
LOC: LAB 09:41
PROVIDERS: Visit Provider Podiatrist
DX: E11.9 Type 2 diabetes mellitus without complications (principal); Z51.89 Encounter for other specified aftercare; T81.31XA Disruption of external operation (surgical) wound, not elsewhere classified, initial encounter; Z87.2 Personal history of diseases of the skin and subcutaneous tissue; Z79.4 Long term (current) use of insulin
CPT/HCPCS: 36415; 73720; 80053; 85025; A9576

== ENCOUNTER 2019-12-03 08:25 | Day surgery (SDC) | payer MEDICARE, SELFPAY ==
[2019-12-03] VITALS (20 sets, daily range): BP systolic 127–184; BP diastolic 64–94; PULSE 80–86; RESP 16–20; TEMP 36.5–36.8; O2SAT 91–100; BMI 24.4
--- NOTE | 2019-12-03 | IR_ITS ---
APPROVED REPORT Patient Location: Outpatient Seismic Observer: AMELIA Ayon RT (R) PROCEDURES Right femoral arterial access Catheter placed in the abdominal aorta Bilateral iliofemoral angiogram Catheter placement in the left superficial femoral artery Left superficial femoral artery selective angiogram with unilateral runoff to the left foot Catheter placement in the right common femoral artery Right common femoral artery retrograde angiogram with unilateral runoff to the right foot Left femoral arterial access Angioplasty to the right anterior tibialis artery INDICATION Toole claudication class IV-V, Peripheral artery disease, Poorly healing lower extremity ulcers with gangrenous toes feet and right calf, Atherosclerosis of the right anterior tibialis artery, Limb threatening ischemia Informed consent was obtained prior to the procedure. COMPLICATIONS none Estimated Blood Loss: less than 10 mls TECHNIQUE 1% lidocaine used to anesthetize right groin the right femoral artery was accessed via the Salinger technique and a 5 Chinese sheath was placed in the right femoral artery. A pigtail catheter was placed in the abdominal aorta and abdominal aortography was performed. Following this a JR4 catheter was then placed in the left superficial femoral artery and superficial femoral artery angiography with unilateral runoff to the left foot was performed. The same catheter was then pulled back into the sheath of the right femoral artery and retrograde angiography was performed with unilateral runoff to the right foot. Following this the apparatus was removed the groin was reprepped gloves were changed sheath was removed good hemostasis was achieved using Perclose device. 1% lidocaine was then used anesthetize the left groin and the left femoral artery was accessed via the Salinger technique. A 5 Chinese sheath was placed in the left femoral artery and the JR4 catheter was used to cannulate the right common iliac artery. Under fluoroscopic guidance the wire was advanced to the right superficial femoral artery. Following this the 5 Chinese sheath was exchanged for a 6 Chinese destination sheath. Therapeutic heparin was administered giving a therapeutic ACT. A 300 cm Choice PT extra-support wire was then placed into the right anterior tibialis artery and a 2.5 x 150 mm balloon was deployed on 2 occasions at 2 minutes in the distal AT as well as the proximal AT. At the end of the procedure there was excellent angiographic results with excellent antegrade flow down the right anterior tibialis artery. At the end of the procedure the apparatus was removed the groin was reprepped gloves were changed sheath was removed good hemostasis was achieved using Perclose device patient was transferred to the postop holding in stable condition ANGIOGRAPHIC RESULTS The distal abdominal aorta bilateral common internal and external iliac arteries are normal. The bilateral common femoral arteries are large caliber and normal. The bilateral profunda femoris arteries are normal. The left superficial femoral artery is widely patent artery with mild atheromatous plaque. The left popliteal artery has mild to moderate [id number] atheromatous plaque nothing greater than 40%. It then gives rise to a widely patent anterior tibialis artery which has multiple punctate 50% eccentric stenoses. There is excellent antegrade flow into the left foot. The left peroneal artery is occluded in the proximal segment. The left posterior tibialis artery has a very proximal 90% stenosis however there is excellent flow distally as it enters the foot The right superficial femoral artery is widely patent and has significant
[2019-12-03 09:14] LABS: Basophils # 0.1 K/mm3 (0-0.2); Basophils % 0.6 % (0.1-2.0); Eosinophils # 0.4 K/mm3 (0.0-0.4); Eosinophils % 5.1 % (0.1-12.0); Hematocrit 31.1 % (42.0-52.0); Lymphocytes # 1.2 K/mm3 (0.7-4.5); Lymphocytes % 15.9 % (10-50); Mean Corpuscular HGB Conc 32.3 g/dL (31.8-35.4); Mean Corpuscular Hemoglobin 31.1 pg (27.0-31.2); Mean Corpuscular Volume 96.3 fl (80-94); Mean Platelet Volume 9.1 fl (7.4-10.4); Monocytes # 0.5 K/mm3 (0.1-1.0); Monocytes % 6.2 % (1.7-9.3); Neutrophils # 5.6 K/mm3 (1.8-7.8); Neutrophils % 72.1 % (37.0-80.0); Platelet Count 327 K/mm3 (142-424); Red Blood Count 3.23 M/mm3 (4.60-6.20); Red Cell Distribution Width 16.9 % (11.5-17.5); White Blood Count 7.8 K/mm3 (4.8-10.8)
[2019-12-03 09:15] LABS: Chloride 105 mmol/L (98-107); Potassium 3.8 mmoL/L (3.5-5.1); Sodium 138 mmol/L (136-145)
[2019-12-03 09:18] LABS: Anion Gap 10.8 mEq/L (5-15); Blood Urea Nitrogen 23 mg/dl (9-20); Calcium 8.7 mg/dl (8.4-10.2); Carbon Dioxide 26 mmol/L (22.0-30.0); Creatinine Clearance Estimated 59 mL/min (50-200); Estimated Glomerular Filt Rate 51 ml/min (>60); GFR (African American) 61 ML/MIN (>60); Glucose 162 mg/dl (74-100)
[2019-12-03 13:21] LABS: CATHL Activated Clotting Time 237 SEC (74-125)
[2019-12-03 14:13] LABS: POC Glucose,Bedside 156 (70-110)
[2019-12-03 17:02] LABS: POC Glucose,Bedside 179 (70-110)
--- NOTE | 2019-12-03 18:48 | PC.NURSE ---
patient has done well since coming to floor. has ate well and slept. pedal pulses noted and palpable. requires max assistance with turns. real draining yellow urine. patient states no bp in l arm. dressings to bilateral groin remain clean of drainage. no signs of hematoma. no complaints. dressings to bilateral feet.
--- NOTE | 2019-12-03 19:14 | PC.NURSE ---
report given to malgorzata
[2019-12-03 21:49] LABS: POC Glucose,Bedside 221 (70-110)
[2019-12-04] VITALS: BP 130/63; PULSE 70; PULSE 78; RESP 16; TEMP 37.1; O2SAT 98
[2019-12-04 04:00] VITALS: PULSE 100; BMI 22.7
[2019-12-04 04:35] VITALS: BP 139/73; PULSE 82; RESP 16; TEMP 37.2; O2SAT 98
[2019-12-04 05:57] LABS: POC Glucose,Bedside 214 (70-110)
--- NOTE | 2019-12-04 06:19 | PC.NURSE ---
A&O X4. PT RESTED WELL WITH EYES CLOSED T/O SHIFT. REFUSED TO BE TURNED BY STAFF Q2H. PT REMAINS NPO AFTER 0000. TOLERATED RA WELL WITH NO COMPLAINTS. DSG TO BLE NOTED C/D/I. REFUSED TEDS AND SCUDS. NSR NOTED ON REFRACTORY TECHNICIAN THIS SHIFT. +1 PULSES NOTED IN BLE. VSS. REMAINS SAFE. CALL LIGHT WITHIN REACH. WILL CONTINUE TO MONITOR.
[2019-12-04 06:38] LABS: Hematocrit 28.4 % (42.0-52.0); Hemoglobin 9.1 g/dL (14.1-18.0)
[2019-12-04 06:51] LABS: Estimated Glomerular Filt Rate 47 ml/min (>60); GFR (African American) 56 ML/MIN (>60)
[2019-12-04 07:03] LABS: Creatinine Clearance Estimated 52 mL/min (50-200)
[2019-12-04 08:00] VITALS: BP 133/69; PULSE 80; PULSE 81; RESP 20; TEMP 36.8; O2SAT 100
--- NOTE | 2019-12-04 09:17 | PC.NURSE ---
left for cathlab
--- NOTE | 2019-12-04 11:04 | PC.NURSE ---
patient will be discharged from cathlab
--- NOTE | 2019-12-04 14:14 | HMH.PHACLD ---
Naila Allred has received discharge medication counseling on the following medications: PATIENT IS ALREADY TAKING LIPITOR, ASPIRIN, AND PLAVIX AT HOME. ZUNILDA AND BETA TAMIA ARE NOT REQUIRED FOR PERIPHERAL STENT. NO NEW PRESCRIPTIONS. PATIENT VERBALIZED UNDERSTANDING AND HAD NO QUESTIONS AT THIS TIME. -MI CARPENTER, PHARMD
== END 2019-12-04 14:00 | disposition home or self-care (01) ==
LOC: CATHLAB 08:28 → 2ND 13:50
PROVIDERS: PCP Family Medicine; Visit Provider Internal Medicine
DX: I70.261 Atherosclerosis of native arteries of extremities with gangrene, right leg (principal); I70.268 Atherosclerosis of native arteries of extremities with gangrene, other extremity; E11.52 Type 2 diabetes mellitus with diabetic peripheral angiopathy with gangrene; Z79.4 Long term (current) use of insulin; I11.0 Hypertensive heart disease with heart failure; I50.22 Chronic systolic (congestive) heart failure; L97.813 Non-pressure chronic ulcer of other part of right lower leg with necrosis of muscle; I77.1 Stricture of artery
CPT/HCPCS: 36415; 37228; 80048; 82565; 82962; 85014; 85018; 85025; 85347; 99152; 99153; C1725; C1760; C1766; C1769; C1894; J1644; Q9966

== ENCOUNTER 2019-12-04 09:04 | Day surgery (SDC) | payer MEDICARE, SELFPAY ==
[2019-12-04] VITALS (13 sets, daily range): BP systolic 133–155; BP diastolic 69–89; PULSE 80–89; RESP 16–17; TEMP 36.8; O2SAT 92–100; BMI 22.6
--- NOTE | 2019-12-04 | IR_ITS ---
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 Flores, she requested opening the posterior tibialis artery in order to improve blood flow to the already infected surgical incision TMA site. Based on her request and patient's medical condition, it was felt improving inline flow to the foot may salvage patients lower extremity. Informed consent was obtained prior to the procedure. COMPLICATIONS NONE Estimated Blood Loss: LESS THAN 10 ML TECHNIQUE 1% lidocaine used anesthetize the right groin the right femoral artery was accessed via the Salinger technique and a 6 Serbian sheath was placed in the right femoral artery. A 4 Serbian JR4 catheter was used to cannulate the left common femoral artery and an advantage wire was advanced distally under fluoroscopic guidance into the left superficial femoral artery. The short 6 Serbian sheath was removed and a long destination 6 Serbian sheath was then advanced ending into the proximal superficial femoral artery. Angiography was performed followed by therapeutic heparin. A Choice PT extra-support wire was placed into the posterior tibialis artery and a 3 mm x 30 mm balloon was deployed at 20 prince for 1 minute reducing the greater than 90% stenosis to less than 30%. After achieving wide patency of the proximal portion of the artery and improving inline flow the apparatus was removed the groin was reprepped gloves were changed sheath was removed good hemostasis was achieved using Perclose device patient was transferred to the postop holding her in stable condition IMPRESSION Successful angioplasty of a severely stenosed left posterior tibialis artery PLAN 1. Xarelto 2.5 twice daily combined with aspirin 81 mg a day 2. Discontinuation of Plavix 3. LDL less than 55 Electronically signed by : Arsenio Maurice, 12/04/2019 10:49:55
[2020-03-15 09:32] LABS: CATHL Activated Clotting Time 374 SEC (74-125)
== END 2019-12-04 14:11 | disposition home or self-care (01) ==
LOC: CATHLAB 09:04
PROVIDERS: PCP Family Medicine; Visit Provider Internal Medicine
DX: I70.262 Atherosclerosis of native arteries of extremities with gangrene, left leg (principal); I70.268 Atherosclerosis of native arteries of extremities with gangrene, other extremity; E11.52 Type 2 diabetes mellitus with diabetic peripheral angiopathy with gangrene; I11.0 Hypertensive heart disease with heart failure; I50.22 Chronic systolic (congestive) heart failure; L97.903 Non-pressure chronic ulcer of unspecified part of unspecified lower leg with necrosis of muscle; Z89.422 Acquired absence of other left toe(s); Z89.421 Acquired absence of other right toe(s); T87.44 Infection of amputation stump, left lower extremity; I77.1 Stricture of artery; Z79.4 Long term (current) use of insulin
CPT/HCPCS: 37228; 85347; 99152; 99153; C1725; C1760; C1766; C1769; C1894; J1644; Q9966

== ENCOUNTER 2019-12-16 16:16 | Observation (INO) | payer MEDICARE, SELFPAY ==
[2019-12-16 16:17] VITALS: BP 116/70; PULSE 83; RESP 20; TEMP 36.8; O2SAT 100; BMI 23.1
--- NOTE | 2019-12-16 16:35 | ECG_ITS ---
APPROVED REPORT Exam: Resting ECG HR:82 bpm ECG Measurements Heart Rate 82 AXES OK 192 P 66 QRSd 94 QRS 26 QT 408 T 52 QTc 476 <Conclusion> Sinus rhythm with fusion complexes Old anterior changes Abnormal ECG Electronically signed by : Diaz Miles, 12/17/2019 16:47:45
--- NOTE | 2019-12-16 16:35 | XR_ITS ---
PROCEDURE: XR CHEST AP CLINICAL HISTORY: weak Generalized weakness COMPARISON: No exams were available for comparison FINDINGS: The cardiomediastinal silhouette and pulmonary vascularity are within normal limits. The lungs are clear without infiltrates, suspicious nodules, or pleural effusions. No acute bony abnormalities. IMPRESSION: No acute findings. Dictated by: Henrry Cardenas MD 12/17/2019 06:43 Electronically signed by Henrry Cardenas MD in [place] 12/17/2019 06:43
--- NOTE | 2019-12-16 16:35 | CT_ITS ---
PROCEDURE: CT ABDOMEN PELVIS W CON CLINICAL INDICATION: hematuria Hematuria COMPARISON: CT ABDOMEN PELVIS WO CON from 11/20/2019 TECHNIQUE: IV Contrast: 75ML OPTIRAY 350 Oral Contrast none Axial images obtained with sagittal and coronal reformats. All CT scans at the facility use one or more dose reduction, viz: automated exposure control, ma/kV adjustment per patient size (including targeted exams where dose is matched to indication, i.e. head), or iterative reconstruction technique. FINDINGS: LOWER THORAX: Paraspinal soft tissue density is noted on the right at the T7, T8, and T9 level. This may only be due to some postinflammatory scarring. MRI with contrast may provide further evaluation if clinically warranted. Coronary artery calcifications are present and there is mild thickening of the distal esophagus which is nonspecific. ABDOMEN & PELVIS: Post cholecystectomy changes. No focal liver lesion. The spleen, adrenal glands, and pancreas have an unremarkable appearance. There is diffuse renal vascular calcification. 2 mm nonobstructing stone is present in the lower pole of the right kidney. No hydronephrosis. No evidence of appendicitis. There is a mild amount of retained colonic feces throughout the colon. A Dash catheter is present. There is thickening the decompressed urinary bladder suspicious for cystitis. Nonspecific mildly enlarged prostate gland. There is diffuse vascular calcification and there is mild anasarca. There are mild degenerative changes in the lumbar spine and there is mild ectasia of the abdominal aorta. IMPRESSION: 1. Constipation. 2. Diffuse thickening of urinary bladder wall suspicious for cystitis or chronic bladder outlet obstruction 3. Slight increased soft tissue density in the right paraspinal region at T7, T8, and T9. This may only be due to some fibrotic change however, inflammatory or infectious etiology is not excluded. MRI of the thoracic spine without and with contrast may provide further evaluation if clinically warranted. 4. Mild anasarca Dictated by: Henrry Cardenas MD 12/17/2019 10:30 Electronically signed by Henrry Cardenas MD in [place] 12/17/2019 10:30
--- NOTE | 2019-12-16 16:36 | CT_ITS ---
PROCEDURE: CT HEAD/BRAIN WO CON CLINICAL INDICATION: ams Altered mental status, altered level consciousness, confusion, disorientation COMPARISON: CT HEAD/BRAIN WO CON from 11/20/2019 TECHNIQUE: Axial images obtained. All CT scans at the facility use one or more dose reduction, viz: automated exposure control, ma/kV adjustment per patient size (including targeted exams where dose is matched to indication, i.e. head), or iterative reconstruction technique. FINDINGS: No midline shift, mass effect, intracranial hemorrhage, hydrocephalus, or extra-axial fluid collection is evident. There is generalized atrophy with hypoattenuation of the periventricular white matter consistent with microangiopathic changes. The calvarium has an unremarkable appearance. No mastoid effusion. There is opacified right maxillary sinus with some increased density of the opacification consistent with chronic sinusitis.. opacified left posterior ethmoid air cells IMPRESSION: 1. No acute intracranial findings. 2. Sinus disease Dictated by: Henrry Cardenas MD 12/17/2019 07:25 Electronically signed by Henrry Cardenas MD in [place] 12/17/2019 07:25
[2019-12-16 16:45] LABS: Basophils # 0.1 K/mm3 (0-0.2); Basophils % 0.9 % (0.1-2.0); Eosinophils # 0.6 K/mm3 (0.0-0.4); Eosinophils % 7.2 % (0.1-12.0); Hematocrit 34.6 % (42.0-52.0); Hemoglobin 11.1 g/dL (14.1-18.0); Lymphocytes # 1.4 K/mm3 (0.7-4.5); Lymphocytes % 17.1 % (10-50); Mean Corpuscular HGB Conc 32.1 g/dL (31.8-35.4); Mean Corpuscular Hemoglobin 31.2 pg (27.0-31.2); Mean Platelet Volume 9.9 fl (7.4-10.4); Monocytes # 0.4 K/mm3 (0.1-1.0); Monocytes % 4.8 % (1.7-9.3); Neutrophils # 5.5 K/mm3 (1.8-7.8); Platelet Count 200 K/mm3 (142-424); Red Blood Count 3.57 M/mm3 (4.60-6.20); Red Cell Distribution Width 15.8 % (11.5-17.5); White Blood Count 7.9 K/mm3 (4.8-10.8)
[2019-12-16 16:47] LABS: Microscopic, Urine URINE MICROSCOPIC (MICROSCOPIC)
[2019-12-16 16:50] LABS: Blood, Urine 3+ (Negative); Glucose,Urine (UA) 3+ (Negative); Ketones,Urine TRACE (Negative); Leukocyte Esterase,Urine 2+ (Negative); Nitrate,Urine POSITIVE (Negative); Protein,Urine 3+ (Negative)
[2019-12-16 16:51] LABS: Alanine Aminotransferase 29 U/L (12-78); Albumin Level 3.1 g/dl (3.5-5.0); Albumin/Globulin Ratio 0.9 (1.1-1.8); Alkaline Phosphatase 126 U/L (38-126); Anion Gap 10.6 mEq/L (5-15); Aspartate Amino Transferase 36 U/L (17-59); Bilirubin,Total 0.6 mg/dl (0.2-1.3); Blood Urea Nitrogen 24 mg/dl (9-20); Calcium 8.5 mg/dl (8.4-10.2); Carbon Dioxide 28 mmol/L (22.0-30.0); Chloride 100 mmol/L (98-107); Creatinine Clearance Estimated 49 mL/min (50-200); Estimated Glomerular Filt Rate 43 ml/min (>60); GFR (African American) 52 ML/MIN (>60); Globulin 3.4 g/dL (1.3-3.2); Glucose 335 mg/dl (74-100); Lactic Acid 1.6 mmol/L (0.7-2.1); Potassium 4.6 mmoL/L (3.5-5.1); Sodium 134 mmol/L (136-145); Total Protein,Serum 6.5 g/dl (6.3-8.2)
[2019-12-16 16:55] LABS: Appearance,Urine Cloudy (Clear); Bilirubin,Urine Negative (Negative); Color,Urine Dark Yellow (Yellow)
[2019-12-16 17:03] LABS: Bacteria,Urine Trace /lpf; RBC,Urine TNTC #/hpf (0-3); Squamous Epithelial Cell,Urine Occasional #/hpf (0-5)
[2019-12-16 17:03] LABS: Troponin I 0.03 ng/ml (0.00-0.034)
--- NOTE | 2019-12-16 18:56 | PC.NURSE ---
Paged Dr. Hebert.
--- NOTE | 2019-12-16 19:21 | PC.NURSE ---
Dr Chavarria on with DR Hebert.
--- NOTE | 2019-12-16 19:27 | HMH.EDAMS ---
ED Disposition Clinical Impression: Altered mental status, UTI (urinary tract infection), Cystitis Disposition: Admitted as Observation Condition on Discharge: Good Instructions: DI for Altered Mental Status Additional Instructions: To Dr. Hebert of admission for this patient for altered mental status and UTI. Referrals: Provider,Referral, [Referring] - - Critical Care Critical Care Time: No Attestation: On 12/16/19, the high probability of a clinically significant, sudden or life threatening deterioration of the following system(s) required my full and direct attention, intervention and personal management. The time I documented below is in addition to time spent performing reported procedures but includes the following listed in this critical care notation. Medical Decision Making - Medical Records Medical records reviewed: Yes: I reviewed the patient's medical records. - Aston Inquiry Pt receiving controlled substance: No Vital Signs: 12/16/19 16:17 Temperature 98.2 F Temperature Source Oral Pulse Rate [Right] 83 Respiratory Rate 20 Blood Pressure [Right Arm] 116/70 Blood Pressure Mean [Right Arm] 85 02 Sat by Pulse Oximetry 100 - Lab Data Lab results reviewed: Yes: I reviewed the patient's lab results. Lab Results 12/16/19 16:35: WBC 7.9, RBC 3.57 L, Hgb 11.1 L, Hct 34.6 L, MCV 97.0 H, MCH 31.2, MCHC 32.1, RDW 15.8, Plt Count 200, MPV 9.9, Neut % (Auto) 70.0, Lymph % (Auto) 17.1, [place] % (Auto) 4.8, Eos % (Auto) 7.2, Baso % (Auto) 0.9, Neut # (Auto) 5.5, Lymph # (Auto) 1.4, [place] # (Auto) 0.4, Eos # (Auto) 0.6 H, Baso # (Auto) 0.1 12/16/19 16:35: Sodium 134 L, Potassium 4.6, Chloride 100, Carbon Dioxide 28, Anion Gap 10.6, BUN 24 H, Creatinine 1.60 H, Estimated Creat Clear 49, Estimated GFR 43 L, Est GFR ( Amer) 52 L, Glucose 335 H, Calcium 8.5, Total Bilirubin 0.6, AST 36, ALT 29, Alkaline Phosphatase 126, Troponin I 0.03, Total Protein 6.5, Albumin 3.1 L, Globulin 3.4 H, Albumin/Globulin Ratio 0.9 L 12/16/19 16:35: Lactate 1.6 12/16/19 16:46: Urine Color Dark yellow, Urine Appearance Cloudy, Urine pH 7.0, Ur Specific [place] 1.020, Urine Protein 3+, Urine Glucose (UA) 3+, Urine Ketones Trace, Urine Blood 3+, Urine Nitrate Positive, Urine Bilirubin Negative, Urine Urobilinogen 4.0, Ur Leukocyte Esterase 2+ A, Urine RBC Tntc, Urine WBC 5-10, Ur Squamous Epith Cells Occasional, Urine Bacteria Trace Result diagrams: 12/16/19 16:35 12/16/19 16:35 Orders (Tests/Meds): ED MEDICATIONS Generic Name Dose Route Start Last Admin Trade Name Freq PRN Reason Stop Dose Admin Sodium Chloride 1,000 mls @ 999 mls/hr 12/16/19 16:45 12/16/19 17:02 Sod Chlor 0.9% 1000ml Bag IV 12/16/19 17:45 999 mls/hr .Q1H1M BONNIE Administration Discontinued Medications Generic Name Dose Route Start Last Admin Trade Name Freq PRN Reason Stop Dose Admin Ioversol 50 ml 12/16/19 17:36 12/16/19 17:37 Rad-Optiray 350 100ml Vial IV 12/16/19 17:37 50 ml ONCE ONE Administration Protocol Sodium Chloride 10 ml 12/16/19 17:36 12/16/19 17:37 Rad-Saline Flush 10ml Syringe IV 12/16/19 17:37 10 ml ONCE ONE Administration ORDERS Category Date Time Status CT abdomen pelvis w con Stat Cat Scan 12/16/19 16:[address] head/brain wo con Stat Cat Scan 12/16/19 16:36 Taken XR chest AP Stat Exams 12/16/19 16:35 Taken Troponin I Q3H Lab 12/16/19 19:45 Ordered Troponin I Q3H Lab 12/16/19 22:45 Ordered Blood Culture Stat Micro 12/16/19 17:30 Received Urine Culture Stat Micro 12/16/19 16:46 Received ECG Request by /Nse Stat Y 12/16/19 16:35 Ordered - CT Data CT Scan: Head, Abdomen Time Received: 19:00 Preliminary Findings: Normal/NAD Findings Narrative: CT patient's head was within normal limits however CT of the abdomen did show some thickening of the bladder which would could be consistent with cystitis Altered Mental Status HPI - General Chief Complai
[2019-12-16 19:59] VITALS: BP 112/75; PULSE 95; RESP 16; TEMP 36.9; O2SAT 100
[2019-12-16 20:12] VITALS: BP 152/86; PULSE 98; RESP 18; TEMP 36.5; O2SAT 98; BMI 21.8
--- NOTE | 2019-12-16 20:12 | PC.NURSE ---
pt arrived to floor via stretcher from ED
[2019-12-17 00:52] LABS: POC Glucose,Bedside 342 (70-110)
--- NOTE | 2019-12-17 03:28 | PC.NURSE ---
Pt A&O x2. Thin stature. Arrived to floor with DSGs to BLE. F/C in place with dark abhay to tea colored urine. Pt is incontinent of stools. Had one small loose brown stool this shift. Pt stated that he can not turn himself and needs to be turned every two hrs. Pt was asked, who turns him at home and he stated his son DESTINEY. Pt was given Bath per staff. Repositioned Q2 and/or as pt allowed. VSS. Medication administered per mar. Will continue to monitor.
[2019-12-17 04:00] VITALS: BP 152/80; PULSE 87; RESP 20; TEMP 36.7; O2SAT 100
[2019-12-17 05:42] VITALS: BMI 21.8
[2019-12-17 07:13] LABS: Basophils % 0.5 % (0.1-2.0); Eosinophils # 0.5 K/mm3 (0.0-0.4); Lymphocytes # 1.3 K/mm3 (0.7-4.5); Lymphocytes % 21.5 % (10-50); Mean Corpuscular HGB Conc 32.4 g/dL (31.8-35.4); Mean Corpuscular Hemoglobin 30.9 pg (27.0-31.2); Mean Corpuscular Volume 95.4 fl (80-94); Mean Platelet Volume 9.4 fl (7.4-10.4); Monocytes # 0.4 K/mm3 (0.1-1.0); Monocytes % 6.5 % (1.7-9.3); Neutrophils # 3.7 K/mm3 (1.8-7.8); Neutrophils % 63.4 % (37.0-80.0); Platelet Count 175 K/mm3 (142-424); Red Blood Count 3.25 M/mm3 (4.60-6.20); Red Cell Distribution Width 15.7 % (11.5-17.5); White Blood Count 5.9 K/mm3 (4.8-10.8)
[2019-12-17 07:18] LABS: Chloride 104 mmol/L (98-107); Potassium 3.7 mmoL/L (3.5-5.1); Sodium 137 mmol/L (136-145)
--- NOTE | 2019-12-17 07:18 | P.CONPHA_ITS ---
[facility] Pharmacy VTE Monitoring - Patient Demographics Admission date: 12/16/19 Report Date: 12/17/19 Time: 07:18 Allergies/Adverse Reactions: Patient Allergies No Known Allergies Allergy (Verified 12/16/19 15:42) Height: 1.83 m Weight: 73.113 kg Patient Problems: Current Active Problems Altered mental status (Acute) UTI (urinary tract infection) (Acute) Cystitis (Acute) - VTE Risk Labs: VTE Related Lab Results Hgb 10.0 g/dL (14.1-18.0) L 12/17/19 06:36 Hct 31.0 % (42.0-52.0) L 12/17/19 06:36 Plt Count 175 K/mm3 (142-424) 12/17/19 06:36 BUN 24 mg/dl (9-20) H 12/16/19 16:35 Creatinine 1.60 mg/dl (0.66-1.25) H 12/16/19 16:35 Estimated Creat Clear 49 mL/min (50-200) 12/16/19 16:35 Was VTE Risk Assessment Performed: Yes VTE Score: 8 VTE Risk Level: Moderate Risk - Prophylaxis VTE Prophylaxis Ordered?: Yes Types of VTE Prophylaxis: TEDS Knee High Location of Applied Device: Bilateral Lower Extremeties - VTE Diagnosis Confirmed Treatment or plan recommended: Continue Current Treatment
[2019-12-17 07:21] LABS: Alanine Aminotransferase 25 U/L (12-78); Albumin Level 2.7 g/dl (3.5-5.0); Albumin/Globulin Ratio 0.9 (1.1-1.8); Alkaline Phosphatase 102 U/L (38-126); Anion Gap 9.7 mEq/L (5-15); Aspartate Amino Transferase 29 U/L (17-59); Bilirubin,Total 0.5 mg/dl (0.2-1.3); Blood Urea Nitrogen 21 mg/dl (9-20); Calcium 8.1 mg/dl (8.4-10.2); Carbon Dioxide 27 mmol/L (22.0-30.0); Creatinine Clearance Estimated 57 mL/min (50-200); Estimated Glomerular Filt Rate 55 ml/min (>60); GFR (African American) 67 ML/MIN (>60); Globulin 3.1 g/dL (1.3-3.2); Glucose 242 mg/dl (74-100); Total Protein,Serum 5.8 g/dl (6.3-8.2)
[2019-12-17 08:00] VITALS: BP 147/77; PULSE 83; RESP 17; TEMP 36.4; O2SAT 100
--- NOTE | 2019-12-17 08:21 | HMH.PHAINT ---
HOME MEDICATION RECONCILIATION ATTEMPTED USING LIST FROM [facility], DR SPENCE'S MOST RECENT PROGRESS NOTE AND LIST FROM [facility]. PT A POOR HISTORIAN AND PHARMACY BOTTLES UNAVAILABLE. PT NO LONGER TAKES PLAVIX AND HAS BEEN CHANGED TO XARELTO 2.5MG DAILY ALONG WITH ASPIRIN 81MG DAILY.
--- NOTE | 2019-12-17 09:03 | HMH.HP ---
*Admission Date: 12/16/19 <Sri Mckeon 12/17/19 09:09> *Chief complaint: headache, dizziness <Sri Mckeon 12/17/19 09:09> *History of present illness: Mr. Allred is a 69-year-old male with a history of diabetes, PVD, and CHF. He was recently discharged from & after an admission to Dr. Miles's service with sepsis, hypovolemia, and UTI. He followed up in the office of [facility] on 11/27/2019 and had completed a course of Omnicef and was feeling better. He still had his Dash catheter. He was also being followed by Dr. Flores to assess wound healing from his recent transmetatarsal amputation. The patient states he began feeling poorly the last few days. He developed a headache and some dizziness and according to his family, had some altered mental status. He also had an insertion of a Dash catheter that took place at his home yesterday by home health. They noticed that there was a large amount of blood in his urine. He was brought to the ER for evaluation and he was felt to have a UTI and was admitted. This a.m. he states he feels slightly better. His headache and dizziness have improved. <Sri Mckeon 12/17/19 09:09> [facility] History I have reviewed the patient's past medical history: Yes <Sri Mckeon 12/17/19 09:09> Medical History: Reports:: Atherosclerotic Heart Disease, BPH, Congestive Heart Failure, Cerebrovascular Accident, Diabetes Mellitus Type 2, Gastroesophageal Reflux Disease(GERD), Hyperlipidemia, Peripheral Artery Disease, Peripheral Vascular Disease, Renal Disease, Renal Insufficiency Denies:: Cancer, Internal Pacemaker <Sri Mckeon 12/17/19 09:09> *Have you ever received a pneumonia vaccine?: No <Sri Mckeon 12/17/19 09:09> *Have you received a flu vaccine this season?: No <Sri Mckeon 12/17/19 09:09> Other Medical History: Reports: Arthritis <Sri Mckeon 12/17/19 09:09> Other Surgeries: Yes: Angiogram, Appendectomy, Cardiac Catheterization, Cholecystectomy. 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) <Sri Mckeon 12/17/19 09:09> Fractures: No <Sri Mckeon 12/17/19 09:09> - *Social History Educational Level: Completed High School <Sri Mckeon 12/17/19 09:09> Smoking Status: Former smoker <Sri Mckeon 12/17/19 09:09> Tobacco Type: smokeless tobacco <Sri Mckeon 12/17/19 09:09> # Packs/Day (cigarettes): 1 <Sri Mckeon 12/17/19 09:09> #Yrs smoked (if former smoker): 25 <Sri Mckeon 12/17/19 09:09> Alcohol Intake: former <Sri Mckeon 12/17/19 09:09> *Occupational Status:: retired <Sri Mckeon 12/17/19 09:09> Housing: house <Sri Mckeon 12/17/19 09:09> Household Members: family <Sri Mckeon 12/17/19 09:09> *Travel in the last 8 weeks: Inside the [place] <Sri Mckeon 12/17/19 09:09> Family Hx:: Cancer, Coronary Artery Disease, Diabetes, Heart Attack, Hyperlipidemia, Hypertension, Alcoholism <Sri Mckeon 12/17/19 09:09> Review of Systems - Constitutional Reports headache(s), Reports weakness, Denies chills, Denies fever(s) <Sri Mckeon 12/17/19 09:09> - Eyes Denies blurry vision, Denies double vision <Sri Mckeon 12/17/19 09:09> - ENT Denies nasal congestion, Denies sore throat <Sri Mckeon 12/17/19 09:09> - *Cardiovascular Denies chest pain, Denies shortness of breath, Denies leg swelling <Sri Mckeon 12/17/19 09:09> - *Respiratory Denies cough, Denies shortness of breath <Sri Mckeon 12/17/19 09:09> - *Gastrointestinal Denies abdominal pain, Denies loose stools, Denies nausea, Denies vomiting <Sri Mckeon 12/17/19 09:09> - *Genitourinary Denies difficulty urinating, Denies painful urination <Sri Mckeon 12/17/19 09:09> - *Musculoskeletal Denies joint pain <Sri Mckeon 12/17/19 09:09> - *Neurologic Reports headache(s), Reports dizziness, Reports weakness <Sri Mckeon 12/17/19 09:09>
[2019-12-17 11:27] LABS: POC Glucose,Bedside 238 (70-110)
[2019-12-17 14:01] VITALS: BMI 21.8
--- NOTE | 2019-12-17 14:34 | HMH.PTEV ---
Physical Therapy Evaluation Rehab PT IP Evaluation Start: 12/17/19 13:02 Freq: ONCE Status: Active Protocol: Document 12/17/19 14:25 CHAMP (Rec: 12/17/19 14:34 [id number]) Subjective/History History History Mr. Allred is a 69-year-old male with a history of diabetes, PVD, and CHF. He was recently discharged from & after an admission to Dr. Miles's service with sepsis, hypovolemia, and UTI. He followed up in the office of [facility] on 2019 and had completed a course of Omnicef and was feeling better. He still had his Dash catheter. He was also being followed by Dr. Flores to assess wound healing from his recent transmetatarsal amputation. The patient states he began feeling poorly the last few days. He developed a headache and some dizziness and according to his family, had some altered mental status. He also had an insertion of a Dash catheter that took place at his home yesterday by home health. They noticed that there was a large amount of blood in his urine. He was brought to the ER for evaluation and he was felt to have a UTI and was admitted. Subjective Subjective Pt reports he has not ambulated for ~ 6-8 weeks due to weakness and TMA of L foot - pt has 3 toe amputations on R - pt reports he lives w/ son and some puts him in a wheelchair before he goes to work. Pt does state that daughter in law is there w/ him. Rehab PT IP Eval Objective Appearance Patient Behavior Appropriate,Cooperative, Dependent Patient Orientation Person,Place,Time Difficulty following instructions none Speech Pattern
[2019-12-17 15:46] VITALS: BP 147/79; PULSE 85; RESP 16; TEMP 36.7; O2SAT 99
[2019-12-17 19:43] VITALS: BP 148/83; PULSE 86; RESP 16; TEMP 37.1; O2SAT 100
--- NOTE | 2019-12-17 19:46 | PC.NURSE ---
Santyl ointment not available in house for pt's dressing change tonportia. Received okay from Dr. Flores via telephone that it was okay to continue w/ dressing by only placing betadine soaked 4x4 instead w/ clean dressing.
--- NOTE | 2019-12-17 23:18 | PC.NURSE ---
PT REFUSED HIS LANTUS FLEXPEN THIS HS. PT STATES HE ONLY TAKES 10 UNITS AT HOME AND DOES NOT WANT TO TAKE 25 UNITS . HE ALSO STATED TO THIS RN THAT IF HIS GLU DROPS BELOW 150 HE BECOMES HYPOGLYCEMIC QUICKLY, THEREFORE THE 4 UNITS OF SHORT ACTING WOULD BE ENOUGH FOR HIM TONIGHT . FS GLU THIS HS NOTED AT 230.
[2019-12-18 00:54] LABS: POC Glucose,Bedside 230 (70-110)
[2019-12-18 00:54] LABS: POC Glucose,Bedside 241 (70-110)
--- NOTE | 2019-12-18 02:57 | PC.NURSE ---
A&O X4. PT RESTED WELL WITH EYES CLOSED T/O SHIFT. REFUSED TO BE TURNED BY STAFF AFTER 0000. HE STATED TO TECH THAT HE JUST WANTED TO BE LEFT ALONE . THIS RN HAS NOTICED PT IS ABLE TO SLIGHTLY TURN ON HIS SIDE INDEPENDENTLY. WILL REEDUCATE IMPORTANCE OF Q2H TURNS WITH PT IN AM UPON WAKENING. BILATERAL LUNGS NOTED CLEAR UPON AUSCULTATION. TOLERATED RA WELL WITH NO COMPLAINTS. FC SITE NOTED C/D/I. URINE NOTED CLEAR, BRIGHT YELLOW URINE. BM THIS SHIFT, INCONTINENT OF BOWEL. DSG'S TO BLE NOTED WITH DRIED BETADINE FROM DSG CHANGE ON PREVIOUS SHIFT. REMAINS C/D/I. ELEVATED BLE ON PILLOWS TO RELIEVE PRESSURE FROM MATTRESS. VSS. REMAINS SAFE. REFUSED TEDS. CALL LIGHT WITHIN REACH. WILL CONTINUE TO MONITOR.
[2019-12-18 03:36] VITALS: BP 145/76; PULSE 63; RESP 20; TEMP 36.6; O2SAT 100
[2019-12-18 05:08] VITALS: BMI 22.2
[2019-12-18 06:25] LABS: POC Glucose,Bedside 162 (70-110)
[2019-12-18 08:00] VITALS: BP 143/75; PULSE 87; RESP 17; TEMP 36.5; O2SAT 100
--- NOTE | 2019-12-18 08:12 | HMH.ACPN2 ---
<Sri Mckeon - Last Filed: 12/18/19 08:12> Internal Medicine - PN: Subj *Date: 12/18/19 *Time: 08:12 Interval history: Patient states he is very tired today. He says he tried to sleep last night but was awakened by nursing staff. He denies any pain today. He states he did eat a good breakfast. Exam Vital signs and Labs for Last 24 Hours: Temp Pulse Resp BP Pulse Ox 97.7 F 87 17 143/75 H 100 12/18/19 08:00 12/18/19 08:00 12/18/19 08:00 12/18/19 08:00 12/18/19 08:00 Laboratory Results - last 24 hr 12/16/19 16:46: Urine Color Dark yellow, Urine Appearance Cloudy, Urine pH 7.0, Ur Specific [place] 1.020, Urine Protein 3+, Urine Glucose (UA) 3+, Urine Ketones Trace, Urine Blood 3+, Urine Nitrate Positive, Urine Bilirubin Negative, Urine Urobilinogen 4.0, Ur Leukocyte Esterase 2+ A, Urine RBC Tntc, Urine WBC 5-10, Ur Squamous Epith Cells Occasional, Urine Bacteria Trace 12/17/19 11:08: POC Glucose 238 H 12/17/19 17:58: POC Glucose 241 H 12/17/19 22:09: POC Glucose 230 H 12/18/19 06:01: POC Glucose 162 H I & O for Last 24 hours: Intake & Output 12/15/19 12/16/19 12/17/19 12/18/19 11:59 11:59 11:59 11:59 Intake Total 1069 / 1069 1080 / 1080 Output Total 1550 / 1550 1325 / 1325 Balance -481 / -481 -245 / -245 Weight 161 lb 2.985 oz 164 lb 0.982 oz Microbiology Reports for the Last 24 Hours: Microbiology 12/16/19 16:46 Urine,Clean Catch Urine Culture - Final Providencia stuartii - Constitutional no acute distress - *Routine Respiratory Exam Present: CTA bilaterally - *Routine Cardiovascular Exam Present: RRR - *Routine Abdominal Exam Present: soft, normoactive bowel sounds. Absent: tenderness - *Routine Extremities Exam Absent: cyanosis, clubbing, edema - *Routine Skin Exam Comments: both legs with bandages, they have purulent drainage this am - *Routine Neurological Exam Present: alert, oriented X3 Assessment and Plan (1) Altered mental status Current visit: Yes Status: Acute Category: Medical Code(s): R41.82 - Altered mental status, unspecified (2) UTI (urinary tract infection) Current visit: Yes Status: Acute Category: Medical Code(s): N39.0 - Urinary tract infection, site not specified (3) Renal insufficiency Current visit: Yes Status: Acute Category: Medical Code(s): N28.9 - Disorder of kidney and ureter, unspecified (4) Systolic congestive heart failure Problem details: Ejection fraction 35%. Current visit: No Status: Chronic Qualifiers: Heart failure chronicity: chronic Qualified Code(s): I50.22 - Chronic systolic (congestive) heart failure Category: Medical Code(s): I50.20 - Unspecified systolic (congestive) heart failure (5) Type 2 diabetes mellitus with diabetic neuropathy, with long-term current use of insulin Current visit: No Status: Chronic Category: Medical Code(s): E11.40 - Type 2 diabetes mellitus with diabetic neuropathy, unspecified; Z79.4 - adjunct faculty for medical terminology (current) use of insulin (6) Diabetes mellitus with diabetic neuropathy Current visit: No Status: Chronic Qualifiers: Diabetes mellitus type: type 2 Diabetes mellitus intermediate teacher insulin use: with intermediate teacher use Qualified Code(s): E11.40 - Type 2 diabetes mellitus with diabetic neuropathy, unspecified; Z79.4 - prison (current) use of insulin Category: Medical Code(s): E11.40 - Type 2 diabetes mellitus with diabetic neuropathy, unspecified (7) PAD (peripheral artery disease) Current visit: No Status: Chronic Category: Medical Code(s): I73.9 - Peripheral vascular disease, unspecified - Assessment and plan all Dx Assessment and Plan for all problems:: Patient's urine culture came back positive for Providencia stuartii which is intermediately sensitive to the ertapenem. We will likely need to change antibiotics. Blood cultures are still pending. The patient's abdominal and pelvic
--- NOTE | 2019-12-18 08:35 | MR_ITS ---
PROCEDURE: MR THORACIC SPINE WO/W CON CLINICAL INDICATION: spinal mass Follow-up abnormal CT scan with right paraspinal mass at T7-T8 T9 COMPARISON: CT ABDOMEN PELVIS W CON from 12/16/2019 TECHNIQUE: Routine multiplanar multi echo sequences are performed without and with gadolinium enhancement. FINDINGS: There is normal alignment. There is mild lower thoracic scoliosis convex right. There is mild multilevel thoracic spondylosis with degenerative disc disease from T6-L1. No acute fracture or dislocation. No extruded herniated discs. No destructive lesions. No abnormal enhancement. The there are trace bilateral pleural effusions which have developed. Marginal osteophyte is present along the anterior and right aspect of T7-T8. The right paraspinal soft tissue thickening is not as apparent on the MRI as the CT scan and does not demonstrate any contrast enhancement and may only represent some paraspinal fibrotic changes. IMPRESSION: 1. No acute finding. 2. Multilevel thoracic spondylosis with scoliosis 3. No enhancing paraspinal mass evident. The abnormality noted on the CT scan may only be related to some underlying fibrotic change or some subpleural atelectasis. Consider [address] follow-up to confirm short term stability. Dictated by: Henrry Cardenas MD 12/19/2019 08:53 Electronically signed by Henrry Cardenas MD in [place] 12/19/2019 08:53
--- NOTE | 2019-12-18 11:08 | HMH.PTWOUND ---
Rehab Inpt Wound Evaluation Rehab IP Wound Evaluation Start: 12/18/19 10:55 Freq: Status: Active Protocol: Document 12/18/19 10:57 [email or web address] (Rec: 12/18/19 11:08 CHAMP [id number]) Rehab PT Wound Assessment Patient Status Premedicated Prior to Dressing Change No Subjective Subjective Pt reports Nsg just changed dressing Wound Right Posterior Calf Wound Type Stasis Ulcer Wound Length (cm) 6 Wound Width (cm) 3 Wound Bed Appearance Eschar Percentage of Eschar (Black) (%) 100 Wound Margins Description Indistinct Wound Drainage Description None Drainage Amount None Drainage Odor No Odor Dressing Status Changed Primary Dressing Silver Dressing Comment polymem silver Wound Secondary Dressing Type Gauze Roll/Wrap Right Lower Lateral Proximal Foot Wound Type Diabetic Foot Ulcer Wound Length (cm) 4 Wound Width (cm) 3 Wound Bed Appearance Eschar Percentage of Eschar (Black) (%) 100 Wound Margins Description Indistinct Primary Dressing Medicated Gauze Pad Comment betadyne Wound Secondary Dressing Type Gauze Roll/Wrap Right Lower Lateral Distal Foot Wound Type Diabetic Foot Ulcer Wound Length (cm) 3 Wound Width (cm) 3 Wound Bed Appearance Eschar Percentage of Eschar (Black) (%) 100 Wound Margins Description Indistinct Primary Dressing Medicated Gauze Pad Comment betadyne gauze Wound Secondary Dressing Type Gauze Roll/Wrap Left Medial Foot Wound Type Diabetic Foot Ulcer Superficial wound not involving tendon, w/ ischemia and infection capsule or bone Wound Length (cm) 2 Wound Width (cm) 2 Wound Bed Appearance Eschar Percentage of Eschar (Black) (%) 100 Wound Margins Description Indistinct Primary Dressing Medicated Gauze Pad Comment betadyne gauze Wound Secondary Dressing Type Gauze Roll/Wrap Left Lateral Foot Wound Type Diabetic Foot Ulcer Is This a Chronic Wound Yes Wound Staging Unstageable Query Text:Stage I - Unbroken, red skin, no blanching. Stage II - Skin broken, superficial skin loss involving epidermis alone or also dermis. Partial loss of skin layers. Stage III - Pressure area involves epidermis, dermis and subcutaneous tissue, full thickness skin loss.
--- NOTE | 2019-12-18 13:47 | SW/DCPLANNER ---
Addendum entered by Pily Nielsen 12/23/19 13:16: SINCE A BED HAS NOT BECOME AVAILABLE PATIENT IS GOING TO DISCHARGE TO HOME AND LIASION FROM [facility] STATE THEY WILL TAKE HIM ONCE A BED BECOMES AVAILABLE... I WILL FOLLOW UP WITH [facility] AND IF HE DOES NOT GET TO GO I WILL CALL [facility] AND HAVE THEM TO CHECK ON HIM AT HOME....DISCHARGE LATER THIS AFTERNOON WITH SON... Addendum entered by Pily Nielsen 12/23/19 07:03: [facility] REP CALLED YESTERDAY AND THEY HAVE ACCEPTED THIS PATIENT WHEN A BED IS AVAILABLE... SHOULD HEAR SOMETHING THIS MORNING, HOPEFUL A BED IS AVAILABLE FOR HIM.. WILL CONTACT SON ONCE A BED HAS BEEN CONFIRMED... Addendum entered by Pily Nielsen 12/19/19 13:56: [facility] HAS REQUESTED ADDITIONAL INFORMATION FROM A [facility].. WAITING TO HEAR TO WHETHER HE CAN GO OR NOT.. Addendum entered by Pily Nielsen 12/19/19 11:01: SENT UPDATED INFORMATION TO [facility]... WILL DO A FOLLOW UP CALL TO SEE IF PATIENT HAS BEEN ACCEPTED AND IF SO HE CAN DISCHARGE THERE LATER TODAY.. Original Note: SENT REFERRAL TO [facility]... I SPOKE WITH SON ON THE PHONE AND HE WAS IN AGREEMENT WITH HIM GOING IF THEY ACCEPT HIM.. I ALSO SPOKE WITH PATIENT AND EXPLAINED THE IMPORTANCE OF GETTING HIS LEGS BETTER OR HE MAY LOSE THEM.. HE STATED HE UNDERSTANDS AND IF THEY WILL TAKE HIM HE HAS AGREED TO GO.. WAITING ON A CALL BACK.
[2019-12-18 15:22] VITALS: BP 138/83; PULSE 86; RESP 17; TEMP 36.7; O2SAT 99
[2019-12-18 16:17] LABS: POC Glucose,Bedside 281 (70-110)
[2019-12-18 16:43] LABS: POC Glucose,Bedside 257 (70-110)
--- NOTE | 2019-12-18 18:55 | PC.NURSE ---
pt has had a good day. he rathers to be left alone. he states staff goes into his room too much and he cant get sleep. pt refused to be turned on his side with a pillow under him. he rotates himself, like i do at home, but does not like a pillow. dressings to ble are cdi. changed by this rn and PT. real cath draining clear yellow urine. vss. will cont. to monitor.
[2019-12-18 19:43] VITALS: BP 129/79; PULSE 81; RESP 18; TEMP 36.7; O2SAT 100
[2019-12-18 20:23] LABS: POC Glucose,Bedside 236 (70-110)
--- NOTE | 2019-12-19 03:26 | PC.NURSE ---
A&OX3. PERRLA, TIRE LAYER EQUAL BILAT. LUNGS CLEAR T/O AUSCULTATION. TOLERATED RA WELL THIS SHIFT. PULSES +2, CAP REFILL <3 SEC. DRESSING NOTED TO RLE, RIGHT FOOT, LEFT FOOT, CDI. ELEVATED BLE ON PILLOW THIS SHIFT. ABDOMEN NONDISTENDED, ACTIVE BOWEL SOUNDS, SOFT AND NONTENDER PER PALPATION. [place] CATHETER IN PLACE, DRAINING CLOUDY, YELLOW URINE. INDEPENDENT WITH BED MOBILITY. CONTACT PRECAUTIONS MAINTAINED THIS SHIFT. RESTED WELL. VSS. WILL CONTINUE TO MONITOR.
[2019-12-19 03:36] VITALS: BP 147/85; PULSE 86; RESP 16; TEMP 36.7; O2SAT 99
[2019-12-19 04:44] VITALS: BMI 22.2
[2019-12-19 06:34] LABS: POC Glucose,Bedside 123 (70-110)
[2019-12-19 08:00] VITALS: BP 133/74; PULSE 81; RESP 17; TEMP 36.7; O2SAT 98
--- NOTE | 2019-12-19 08:17 | HMH.ACPN2 ---
<Sri Mckeon - Last Filed: 12/19/19 08:17> Internal Medicine - PN: Subj *Date: 12/19/19 *Time: 08:17 Interval history: Patient states he is tired this morning. He denies any pain. He states he did eat a good breakfast this morning. He did not go to bed last night till 3 AM and states this is normal for him. Exam Vital signs and Labs for Last 24 Hours: Temp Pulse Resp BP Pulse Ox 98.1 F 81 17 133/74 98 12/19/19 08:00 12/19/19 08:00 12/19/19 08:00 12/19/19 08:00 12/19/19 08:00 Laboratory Results - last 24 hr 12/17/19 05:34: POC Glucose 281 H 12/18/19 16:36: POC Glucose 257 H 12/18/19 19:57: POC Glucose 236 H 12/19/19 06:22: POC Glucose 123 H I & O for Last 24 hours: Intake & Output 12/16/19 12/17/19 12/18/19 12/19/19 11:59 11:59 11:59 11:59 Intake Total 1069 / 1069 1080 / 1080 4166 / 4166 Output Total 1550 / 1550 1325 / 2125 1750 / 1750 Balance -481 / -481 -245 / -1045 2416 / 2416 Weight 161 lb 2.985 oz 164 lb 0.982 oz 164 lb 5 oz Microbiology Reports for the Last 24 Hours: Microbiology 12/16/19 17:30 Blood Blood Culture - Preliminary NO GROWTH AFTER 48 HOURS 12/16/19 16:35 Blood Blood Culture - Preliminary NO GROWTH AFTER 48 HOURS 12/16/19 16:46 Urine,Clean Catch Urine Culture - Final Providencia stuartii - Constitutional no acute distress - *Routine Respiratory Exam Present: CTA bilaterally - *Routine Cardiovascular Exam Present: RRR - *Routine Abdominal Exam Present: soft, normoactive bowel sounds. Absent: tenderness - *Routine Skin Exam Comments: both lower legs and feet wrapped, bandages clean and dry - *Routine Neurological Exam Present: alert Assessment and Plan (1) Altered mental status Current visit: Yes Status: Acute Category: Medical Code(s): R41.82 - Altered mental status, unspecified (2) UTI (urinary tract infection) Current visit: Yes Status: Acute Category: Medical Code(s): N39.0 - Urinary tract infection, site not specified (3) Renal insufficiency Current visit: Yes Status: Acute Category: Medical Code(s): N28.9 - Disorder of kidney and ureter, unspecified (4) Systolic congestive heart failure Problem details: Ejection fraction 35%. Current visit: No Status: Chronic Qualifiers: Heart failure chronicity: chronic Qualified Code(s): I50.22 - Chronic systolic (congestive) heart failure Category: Medical Code(s): I50.20 - Unspecified systolic (congestive) heart failure (5) Type 2 diabetes mellitus with diabetic neuropathy, with long-term current use of insulin Current visit: No Status: Chronic Category: Medical Code(s): E11.40 - Type 2 diabetes mellitus with diabetic neuropathy, unspecified; Z79.4 - intermediate accountant (current) use of insulin (6) Diabetes mellitus with diabetic neuropathy Current visit: No Status: Chronic Qualifiers: Diabetes mellitus type: type 2 Diabetes mellitus long-term insulin use: with buttermaker use Qualified Code(s): E11.40 - Type 2 diabetes mellitus with diabetic neuropathy, unspecified; Z79.4 - intermediate accountant (current) use of insulin Category: Medical Code(s): E11.40 - Type 2 diabetes mellitus with diabetic neuropathy, unspecified (7) PAD (peripheral artery disease) Current visit: No Status: Chronic Category: Medical Code(s): I73.9 - Peripheral vascular disease, unspecified (8) Mass of spine Current visit: Yes Status: Acute Category: Medical Code(s): M89.8X8 - Other specified disorders of bone, other site - Assessment and plan all Dx Assessment and Plan for all problems:: Awaiting MRI of the spine. We will continue antibiotics. Awaiting placement. <Sebastian Hebert - Last Filed: 12/19/19 13:11> Internal Medicine - PN: Subj *Date: 12/19/19 *Time: 13:09 Exam Vital signs and Labs for Last 24 Hours: Temp Pulse Resp BP
[2019-12-19 11:15] LABS: POC Glucose,Bedside 156 (70-110)
--- NOTE | 2019-12-19 11:15 | PC.NURSE ---
ATTEMPTED TO CHANGE PT'S DRESSING, PT REFUSED AND STATED I DON'T WANT TO BE BOTHERED RIGHT NOW. WILL ATTEMPT TO CHANGE DRESSINGS LATER. PT ALSO REFUSED 1100 SSI
--- NOTE | 2019-12-19 12:19 | DIET.NUTRFU ---
Weight is stable, no new edema noted. BG is trending down, remains moderately high- ~250. PO intake is good. Continuing to monitor status and new diagnostic findings to determine further nutritional care.
--- NOTE | 2019-12-19 13:30 | PC.NURSE ---
ATTEMPTED DRESSING CHANGE AGAIN, PT REFUSED. WILL CONTINUE TO ATTEMPT DRESSING CHANGE AT A LATER TIME
--- NOTE | 2019-12-19 15:02 | HMH.OTEV ---
OT Inpatient Evaluation Rehab OT IP Evaluation Start: 12/19/19 13:55 Freq: ONCE Status: Complete Protocol: Document 12/19/19 14:50 [facility] (Rec: 12/19/19 15:02 [facility] [id number]) Rehab OT IP Assessment Subjective History Pt oriented x 3 upon arrival. Pt reports prior to his original surgery he was living alone. Pt explains he was able to complete all ADLs such as dressing, showering, and feeding independently. Pt also reports he was independent with cooking, laundry, and also still drove. Pt was able to still walk with a walker for safety. After original surgery, pt was unable to receive therapy due to COVID-19 pandemic. Therefore, he spent most of his time in a wheelchair developing several other complications. Pt has been wheelchair bound, no amublation, for the past 6-8 weeks per patient. Pt has moved in with his son recently and now requires assistance with all ADLs and is dependent upon family for completion of IADLs. Subjective I don't know why but they just won't move. Objective Patient Orientation Person,Place,Birthday Upper Extremity Gross ROM WFL Bed Mobility bed mobility-scooting,bed mobility - supine/sit,bed mobility - rolling Assist Level Moderate x 1 (50% assist) Rehab OT IP prob,goals,plan Problems Date of Evaluation: 12/19/19 OT IP Problems Bed Mobility,Transfers,Gait, Balance,Self care,Safety Rehab Potential Rehab Potential Good Equipment Needs Assistive Devices Rolling / Wheeled Walker Plan OT intervention Plan Bed Mobility,Transfers,Gait, Balance,Self care,Safety, Therapeutic Exercise OT Plan Frequency Daily Duration LOS Discharge Goals Bed Mobility Ability Assistance x1 Sit to Stand Chair Transfer Ability Moderate x 1 (50% assist)
[2019-12-19 16:00] VITALS: BP 142/81; PULSE 89; RESP 16; TEMP 36.7; O2SAT 97
--- NOTE | 2019-12-19 17:32 | PC.NURSE ---
PT IS ALERT AND ORIENTED X4. DRESSING CHANGE FINALLY COMPLETED AFTER SEVERAL REFUSALS. PT DENIES PAIN. NO COMPLAINTS VOICED. NO ACUTE CHANGES THIS SHIFT. PT WORKED WITH PT/OT. NO BM. SAFETY MEASURES IN PLACE, WILL CONTINUE TO MONITOR
[2019-12-19 20:28] LABS: POC Glucose,Bedside 193 (70-110)
[2019-12-20 01:43] LABS: POC Glucose,Bedside 218 (70-110)
[2019-12-20 04:00] VITALS: BP 138/75; PULSE 81; RESP 16; TEMP 36.9; O2SAT 96
[2019-12-20 05:00] VITALS: BMI 22.2
--- NOTE | 2019-12-20 05:41 | PC.NURSE ---
A&OX3. 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 LUNGS CLEAR T/O AUSCULTATION. TOLERATED RA WELL. ABDOMEN FLAT, ACTIVE BOWEL SOUNDS, SOFT AND NONTENDER PER PALPATION. PULSES +2, CAP REFILL <3SEC. [place] CATHETER REMAINS IN PLACE, PATENT AND DRAINING YELLOW, CLOUDY URINE. DRESSING NOTED TO RLE, RIGHT FOOT AND LEFT FOOT, CDI. INDEPENDENT WITH BED MOBILITY. REMAINED IN CONTACT PRECAUTIONS AND LEFT LIMB ALERT MAINTAINED. VSS. WILL CONTINUE TO MONITOR.
[2019-12-20 06:37] LABS: POC Glucose,Bedside 112 (70-110)
[2019-12-20 08:00] VITALS: BP 135/74; PULSE 86; RESP 16; TEMP 36.7; O2SAT 96
--- NOTE | 2019-12-20 09:30 | HMH.ACPN2 ---
Internal Medicine - PN: Subj *Date: 12/20/19 *Time: 09:30 Interval history: No new complaints this morning. Exam Vital signs and Labs for Last 24 Hours: Temp Pulse Resp BP Pulse Ox 98.1 F 86 16 135/74 96 12/20/19 08:00 12/20/19 08:00 12/20/19 08:00 12/20/19 08:00 12/20/19 08:00 Laboratory Results - last 24 hr 12/19/19 11:06: POC Glucose 156 H 12/19/19 16:32: POC Glucose 218 H 12/19/19 20:03: POC Glucose 193 H 12/20/19 06:27: POC Glucose 112 H I & O for Last 24 hours: Intake & Output 12/17/19 12/18/19 12/19/19 12/20/19 11:59 11:59 11:59 11:59 Intake Total 1069 / 1069 1080 / 1080 4166 / 4166 3731 / 3731 Output Total 1550 / 1550 1325 / 2125 1750 / 1750 2250 / 2250 Balance -481 / -481 -245 / -1045 2416 / 2416 1481 / 1481 Weight 161 lb 2.985 oz 164 lb 0.982 oz 164 lb 5 oz 164 lb 5.321 oz Narrative: Pleasant, no distress. Color is good. Lungs are clear anteriorly. Abdomen is soft and nondistended with no masses or tenderness. Extremities show no edema. Dressings intact on both feet. Assessment and Plan (1) Altered mental status Current visit: Yes Status: Acute Category: Medical Code(s): R41.82 - Altered mental status, unspecified (2) UTI (urinary tract infection) Current visit: Yes Status: Acute Category: Medical Code(s): N39.0 - Urinary tract infection, site not specified (3) Renal insufficiency Current visit: Yes Status: Acute Category: Medical Code(s): N28.9 - Disorder of kidney and ureter, unspecified (4) Systolic congestive heart failure Problem details: Ejection fraction 35%. Current visit: No Status: Chronic Qualifiers: Heart failure chronicity: chronic Qualified Code(s): I50.22 - Chronic systolic (congestive) heart failure Category: Medical Code(s): I50.20 - Unspecified systolic (congestive) heart failure (5) Type 2 diabetes mellitus with diabetic neuropathy, with long-term current use of insulin Current visit: No Status: Chronic Category: Medical Code(s): E11.40 - Type 2 diabetes mellitus with diabetic neuropathy, unspecified; Z79.4 - correction (current) use of insulin (6) Diabetes mellitus with diabetic neuropathy Current visit: No Status: Chronic Qualifiers: Diabetes mellitus type: type 2 Diabetes mellitus usp insulin use: with termite inspector use Qualified Code(s): E11.40 - Type 2 diabetes mellitus with diabetic neuropathy, unspecified; Z79.4 - termite inspector (current) use of insulin Category: Medical Code(s): E11.40 - Type 2 diabetes mellitus with diabetic neuropathy, unspecified (7) PAD (peripheral artery disease) Current visit: No Status: Chronic Category: Medical Code(s): I73.9 - Peripheral vascular disease, unspecified (8) Mass of spine Current visit: Yes Status: Acute Category: Medical Code(s): M89.8X8 - Other specified disorders of bone, other site - Assessment and plan all Dx Assessment and Plan for all problems:: Care management was unable to secure a bed at the acute rehab hospital and he will be here through the weekend and continuing his antibiotic and wound care.
--- NOTE | 2019-12-20 13:03 | P.PN_ITS ---
Internal Medicine - PN: Subj *Date: 12/20/19 *Time: 13:03 Exam Vital signs and Labs for Last 24 Hours: Temp Pulse Resp BP Pulse Ox 98.1 F 86 16 135/74 96 12/20/19 08:00 12/20/19 08:00 12/20/19 08:00 12/20/19 08:00 12/20/19 08:00 Laboratory Results - last 24 hr 12/19/19 16:32: POC Glucose 218 H 12/19/19 20:03: POC Glucose 193 H 12/20/19 06:27: POC Glucose 112 H I & O for Last 24 hours: Intake & Output 12/17/19 12/18/19 12/19/19 12/20/19 23:59 23:59 23:59 23:59 Intake Total 1669 / 1669 600 / 600 5386 / 5386 2391 / 2391 Output Total 2275 / 2275 2250 / 2250 1900 / 1900 450 / 450 Balance -606 / -606 -1650 / -1650 3486 / 3486 1941 / 1941 Weight 73 kg 74.417 kg 74.531 kg 74.54 kg Assessment and Plan (1) Altered mental status Current visit: Yes Status: Acute Category: Medical Code(s): R41.82 - Altered mental status, unspecified (2) UTI (urinary tract infection) Current visit: Yes Status: Acute Category: Medical Code(s): N39.0 - Urinary tract infection, site not specified (3) Renal insufficiency Current visit: Yes Status: Acute Category: Medical Code(s): N28.9 - Disorder of kidney and ureter, unspecified (4) Systolic congestive heart failure Problem details: Ejection fraction 35%. Current visit: No Status: Chronic Qualifiers: Heart failure chronicity: chronic Qualified Code(s): I50.22 - Chronic systolic (congestive) heart failure Category: Medical Code(s): I50.20 - Unspecified systolic (congestive) heart failure (5) Type 2 diabetes mellitus with diabetic neuropathy, with long-term current use of insulin Current visit: No Status: Chronic Category: Medical Code(s): E11.40 - Type 2 diabetes mellitus with diabetic neuropathy, unspecified; Z79.4 - assisted (current) use of insulin (6) Diabetes mellitus with diabetic neuropathy Current visit: No Status: Chronic Qualifiers: Diabetes mellitus type: type 2 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 insulin use: with half-way use Qualified Code(s): E11.40 - Type 2 diabetes mellitus with diabetic neuropathy, unspecified; Z79.4 - buttermaker (current) use of insulin Category: Medical Code(s): E11.40 - Type 2 diabetes mellitus with diabetic neuropathy, unspecified (7) PAD (peripheral artery disease) Current visit: No Status: Chronic Category: Medical Code(s): I73.9 - Peripheral vascular disease, unspecified (8) Mass of spine Current visit: Yes Status: Acute Category: Medical Code(s): M89.8X8 - Other specified disorders of bone, other site The patient's infection will respond to the chosen ABx?: Yes Is the patient receiving the right drug, dose, and route?: Yes Could a more targeted ABx be ordered?: No
--- NOTE | 2019-12-20 14:35 | PC.NURSE ---
Pt resting quietly in bed all this shift. Refuses turning by pt and moves very little on his own. Dressing change performed without difficulty. Nurse was able to engage pt in extensive conversation regarding the pros and cons of certain [employer] tv shows. Otherwise, pt has flat affect with little conversational interaction with staff. Denies pain/shortness of breath.
[2019-12-20 16:00] VITALS: BP 101/53; PULSE 77; RESP 16; TEMP 36.6; O2SAT 98
[2019-12-20 16:18] LABS: POC Glucose,Bedside 220 (70-110)
[2019-12-20 16:18] LABS: POC Glucose,Bedside 132 (70-110)
[2019-12-20 20:00] VITALS: BP 110/72; PULSE 81; RESP 18; TEMP 36.3; O2SAT 97
[2019-12-20 20:22] LABS: POC Glucose,Bedside 148 (70-110)
--- NOTE | 2019-12-21 03:16 | PC.NURSE ---
Bilateral dressings remain intact, c/d/i. Pt reported could not feel me touching his great and 2nd toe on right foot, >3sec refill noted. Bilateral lower extremities are equal in warmth. No c/o pain thus far, vital signs stable, afebrile. Pt alerts when he is ready to be turned and then turned back again.IV infusing well, real cath patent and draining by gravity to bedside. Call light w/i reach, monitoring continues.
[2019-12-21 03:46] VITALS: BP 136/77; PULSE 78; RESP 16; TEMP 36.7; O2SAT 97
[2019-12-21 05:00] VITALS: BMI 22.3
[2019-12-21 05:20] LABS: POC Glucose,Bedside 96 (70-110)
[2019-12-21 07:47] VITALS: BP 127/45; PULSE 78; RESP 16; TEMP 36.6; O2SAT 97
[2019-12-21 07:53] VITALS: O2SAT 97
--- NOTE | 2019-12-21 08:48 | HMH.ACPN2 ---
Internal Medicine - PN: Subj *Date: 12/21/19 *Time: 08:48 Interval history: Condition remains stable. His urine is clearing. Still awaiting transfer to acute rehab. Exam Vital signs and Labs for Last 24 Hours: Temp Pulse Resp BP Pulse Ox 97.8 F 78 16 127/45 L 97 12/21/19 07:47 12/21/19 07:47 12/21/19 07:47 12/21/19 07:47 12/21/19 07:53 Laboratory Results - last 24 hr 12/20/19 11:05: POC Glucose 132 H 12/20/19 16:10: POC Glucose 220 H 12/20/19 20:03: POC Glucose 148 H 12/21/19 05:12: POC Glucose 96 I & O for Last 24 hours: Intake & Output 12/18/19 12/19/19 12/20/19 12/21/19 11:59 11:59 11:59 11:59 Intake Total 1080 / 1080 4166 / 4166 3731 / 3731 1872 / 1872 Output Total 1325 / 2125 1750 / 1750 2250 / 2250 1100 / 1100 Balance -245 / -1045 2416 / 2416 1481 / 1481 772 / 772 Weight 164 lb 0.982 oz 164 lb 5 oz 164 lb 5.321 oz 165 lb 1 oz Narrative: Exam is unchanged. Color is normal. Abdomen is soft and nondistended with no tenderness. Extremities no edema. Assessment and Plan (1) Altered mental status Current visit: Yes Status: Acute Category: Medical Code(s): R41.82 - Altered mental status, unspecified (2) UTI (urinary tract infection) Current visit: Yes Status: Acute Category: Medical Code(s): N39.0 - Urinary tract infection, site not specified (3) Renal insufficiency Current visit: Yes Status: Acute Category: Medical Code(s): N28.9 - Disorder of kidney and ureter, unspecified (4) Systolic congestive heart failure Problem details: Ejection fraction 35%. Current visit: No Status: Chronic Qualifiers: Heart failure chronicity: chronic Qualified Code(s): I50.22 - Chronic systolic (congestive) heart failure Category: Medical Code(s): I50.20 - Unspecified systolic (congestive) heart failure (5) Type 2 diabetes mellitus with diabetic neuropathy, with long-term current use of insulin Current visit: No Status: Chronic Category: Medical Code(s): E11.40 - Type 2 diabetes mellitus with diabetic neuropathy, unspecified; Z79.4 - rat exterminator (current) use of insulin (6) Diabetes mellitus with diabetic neuropathy Current visit: No Status: Chronic Qualifiers: Diabetes mellitus type: type 2 Diabetes mellitus half-way insulin use: with intermodal truck driver use Qualified Code(s): E11.40 - Type 2 diabetes mellitus with diabetic neuropathy, unspecified; Z79.4 - rat exterminator (current) use of insulin Category: Medical Code(s): E11.40 - Type 2 diabetes mellitus with diabetic neuropathy, unspecified (7) PAD (peripheral artery disease) Current visit: No Status: Chronic Category: Medical Code(s): I73.9 - Peripheral vascular disease, unspecified (8) Mass of spine Current visit: Yes Status: Acute Category: Medical Code(s): M89.8X8 - Other specified disorders of bone, other site - Assessment and plan all Dx Assessment and Plan for all problems:: Continue current orders. Awaiting transfer to acute rehab hospital.
--- NOTE | 2019-12-21 10:53 | HMH.ACPN ---
Internal Medicine - PN: Subj *Date: 12/21/19 *Time: 10:53 Exam Vital signs and Labs for Last 24 Hours: Temp Pulse Resp BP Pulse Ox 97.8 F 78 16 127/45 L 97 12/21/19 07:47 12/21/19 07:47 12/21/19 07:47 12/21/19 07:47 12/21/19 07:53 Laboratory Results - last 24 hr 12/20/19 11:05: POC Glucose 132 H 12/20/19 16:10: POC Glucose 220 H 12/20/19 20:03: POC Glucose 148 H 12/21/19 05:12: POC Glucose 96 I & O for Last 24 hours: Intake & Output 12/18/19 12/19/19 12/20/19 12/21/19 23:59 23:59 23:59 23:59 Intake Total 600 / 600 5386 / 5386 2631 / 2751 1632 / 1632 Output Total 2250 / 2250 1900 / 1900 1550 / 1550 Balance -1650 / -1650 3486 / 3486 1081 / 1201 1632 / 1632 Weight 74.417 kg 74.531 kg 74.54 kg 74.871 kg Assessment and Plan (1) Altered mental status Current visit: Yes Status: Acute Category: Medical Code(s): R41.82 - Altered mental status, unspecified (2) UTI (urinary tract infection) Current visit: Yes Status: Acute Category: Medical Code(s): N39.0 - Urinary tract infection, site not specified (3) Renal insufficiency Current visit: Yes Status: Acute Category: Medical Code(s): N28.9 - Disorder of kidney and ureter, unspecified (4) Systolic congestive heart failure Problem details: Ejection fraction 35%. Current visit: No Status: Chronic Qualifiers: Heart failure chronicity: chronic Qualified Code(s): I50.22 - Chronic systolic (congestive) heart failure Category: Medical Code(s): I50.20 - Unspecified systolic (congestive) heart failure (5) Type 2 diabetes mellitus with diabetic neuropathy, with long-term current use of insulin Current visit: No Status: Chronic Category: Medical Code(s): E11.40 - Type 2 diabetes mellitus with diabetic neuropathy, unspecified; Z79.4 - joint terminal attack controller (current) use of insulin (6) Diabetes mellitus with diabetic neuropathy Current visit: No Status: Chronic Qualifiers: Diabetes mellitus type: type 2 Diabetes mellitus joint terminal attack controller insulin use: with joint terminal attack controller use Qualified Code(s): E11.40 - Type 2 diabetes mellitus with diabetic neuropathy, unspecified; Z79.4 - long-term (current) use of insulin Category: Medical Code(s): E11.40 - Type 2 diabetes mellitus with diabetic neuropathy, unspecified (7) PAD (peripheral artery disease) Current visit: No Status: Chronic Category: Medical Code(s): I73.9 - Peripheral vascular disease, unspecified (8) Mass of spine Current visit: Yes Status: Acute Category: Medical Code(s): M89.8X8 - Other specified disorders of bone, other site The patient's infection will respond to the chosen ABx?: Yes Is the patient receiving the right drug, dose, and route?: Yes Could a more targeted ABx be ordered?: No (CULTURE IS SENSITIVE TO BACTRIM)
[2019-12-21 11:41] LABS: POC Glucose,Bedside 145 (70-110)
[2019-12-21 15:57] VITALS: BP 155/68; PULSE 83; RESP 20; TEMP 36.9; O2SAT 97
[2019-12-21 16:41] LABS: POC Glucose,Bedside 174 (70-110)
[2019-12-21 20:00] VITALS: BP 142/79; PULSE 85; RESP 17; TEMP 36.9; O2SAT 99
[2019-12-21 21:17] LABS: POC Glucose,Bedside 204 (70-110)
[2019-12-22 03:49] VITALS: BP 139/77; PULSE 77; RESP 16; TEMP 36.6; O2SAT 98
[2019-12-22 05:00] VITALS: BMI 22.3
[2019-12-22 05:46] LABS: POC Glucose,Bedside 128 (70-110)
--- NOTE | 2019-12-22 06:12 | PC.NURSE ---
Nothing acute to report this shift. Pt did not sleep much, intermittent rest on a few checks. FS last night 204, this am 128. Pt is concerned and refused long acting insulin is too much, I don't take that much and I know it will bottom me out. Wrote on the dry erase board to remind pt to speak with PCP. IV infusing well with no problems. Bilateral lower extremity dressings remain c/d/i, lower extremities warm with little edema noted. Pt makes needs known, uses call light appropriately, remained safe, monitoring continues.
[2019-12-22 08:00] VITALS: BP 130/48; PULSE 79; RESP 16; TEMP 36.9; O2SAT 98
--- NOTE | 2019-12-22 09:44 | HMH.ACPN2 ---
<Macie Cedillo - Last Filed: 12/22/19 13:03> Internal Medicine - PN: Subj *Date: 12/22/19 *Time: 13:03 Interval history: Patient is awaiting placement. He states he did sleep some last night. He felt he ate well for breakfast. He denies any foot pain. He states that they just changed his dressings without any discomfort. He denies chest pain and shortness of breath. He continues with a Dash catheter. Exam Vital signs and Labs for Last 24 Hours: Temp Pulse Resp BP Pulse Ox 98.5 F 79 16 130/48 L 98 12/22/19 08:00 12/22/19 08:00 12/22/19 08:00 12/22/19 08:00 12/22/19 08:00 Laboratory Results - last 24 hr 12/21/19 11:33: POC Glucose 145 H 12/21/19 16:34: POC Glucose 174 H 12/21/19 20:30: POC Glucose 204 H 12/22/19 05:39: POC Glucose 128 H I & O for Last 24 hours: Intake & Output 12/19/19 12/20/19 12/21/19 12/22/19 11:59 11:59 11:59 11:59 Intake Total 4166 / 4166 3731 / 3731 1872 / 1872 2178 / 2178 Output Total 1750 / 1750 2250 / 2250 1100 / 1100 1500 / 1500 Balance 2416 / 2416 1481 / 1481 772 / 772 678 / 678 Weight 164 lb 5 oz 164 lb 5.321 oz 165 lb 1 oz 165 lb 0.961 oz Microbiology Reports for the Last 24 Hours: Microbiology 12/16/19 17:30 Blood Blood Culture - Final NO GROWTH AFTER 5 DAYS 12/16/19 16:35 Blood Blood Culture - Final NO GROWTH AFTER 5 DAYS - Constitutional no acute distress Comments: Awakened from sleep for exam - *Routine Respiratory Exam Present: diminished air movement (Posteriorly) - *Routine Cardiovascular Exam Present: RRR - *Routine Abdominal Exam Present: soft, normoactive bowel sounds. Absent: tenderness - *Routine Extremities Exam Absent: edema, calf tenderness Comments: Bilateral feet with dressings. - *Routine Neurological Exam Present: alert, oriented X3 Assessment and Plan (1) Altered mental status Current visit: Yes Status: Acute Category: Medical Code(s): R41.82 - Altered mental status, unspecified (2) UTI (urinary tract infection) Current visit: Yes Status: Acute Category: Medical Code(s): N39.0 - Urinary tract infection, site not specified (3) Renal insufficiency Current visit: Yes Status: Acute Category: Medical Code(s): N28.9 - Disorder of kidney and ureter, unspecified (4) Systolic congestive heart failure Problem details: Ejection fraction 35%. Current visit: No Status: Chronic Qualifiers: Heart failure chronicity: chronic Qualified Code(s): I50.22 - Chronic systolic (congestive) heart failure Category: Medical Code(s): I50.20 - Unspecified systolic (congestive) heart failure (5) Type 2 diabetes mellitus with diabetic neuropathy, with long-term current use of insulin Current visit: No Status: Chronic Category: Medical Code(s): E11.40 - Type 2 diabetes mellitus with diabetic neuropathy, unspecified; Z79.4 - terminal operations supervisor (current) use of insulin (6) Diabetes mellitus with diabetic neuropathy Current visit: No Status: Chronic Qualifiers: Diabetes mellitus type: type 2 Diabetes mellitus senior living insulin use: with tank terminal gauger use Qualified Code(s): E11.40 - Type 2 diabetes mellitus with diabetic neuropathy, unspecified; Z79.4 - terminal operations supervisor (current) use of insulin Category: Medical Code(s): E11.40 - Type 2 diabetes mellitus with diabetic neuropathy, unspecified (7) PAD (peripheral artery disease) Current visit: No Status: Chronic Category: Medical Code(s): I73.9 - Peripheral vascular disease, unspecified (8) Mass of spine Current visit: Yes Status: Acute Category: Medical Code(s): M89.8X8 - Other specified disorders of bone, other site - Assessment and plan all Dx Assessment and Plan for all problems:: Continue with antibiotics and wound care. Care management working on placement. <Sebastian Hebert - Last Filed: 12/22/19 17:05> Internal Medicine - PN: Subj
[2019-12-22 14:47] LABS: POC Glucose,Bedside 144 (70-110)
[2019-12-22 16:00] VITALS: BP 128/79; PULSE 80; RESP 16; TEMP 36.6; O2SAT 99
[2019-12-22 17:10] LABS: POC Glucose,Bedside 157 (70-110)
--- NOTE | 2019-12-22 17:52 | PC.NURSE ---
patient has had an okaya day. rings out as needed. real continues to yellow urine with some sediment. requests turns, dressing change and tolerated well no feeling noted to areas. vitals have been stable. refused 1630 insulin. will continue to monitor.
--- NOTE | 2019-12-22 19:14 | PC.NURSE ---
report given to malgorzata
[2019-12-22 20:00] VITALS: BP 150/70; PULSE 83; RESP 18; TEMP 37.1; O2SAT 98
[2019-12-22 22:36] LABS: POC Glucose,Bedside 125 (70-110)
[2019-12-23 04:00] VITALS: BP 142/75; PULSE 77; RESP 18; TEMP 36.6; O2SAT 98
[2019-12-23 04:16] VITALS: BMI 22.7
[2019-12-23 06:22] LABS: POC Glucose,Bedside 91 (70-110)
--- NOTE | 2019-12-23 06:50 | PC.NURSE ---
A&OX3. PERRLA, SENIOR POLICY ANALYST EQUAL BILAT. LUNGS CLEAR T/O AUSCULTATION, TOLERATED RA WELL. ABDOMEN NONDISTENDED, ACTIVE BOWEL SOUNDS, SOFT AND NONTENDER PER PALPATION. PULSES +2, CAP REFILL <3SEC. [place] CATHETER NOTED, PATENT AND DRAINING CLOUDY, PALE YELLOW URINE. EMA AREA CDI. INDEPENDENT WITH BED MOBILITY. DRESSINGS TO RLE, RIGHT FOOT, AND LEFT FOOT CDI. ELEVATED BLE ON PILLOW. NO COMPLAINTS STATED THIS SHIFT. VSS. WILL CONTINUE TO MONITOR. REMAINED IN CONTACT ISOLATION THIS SHIFT.
[2019-12-23 07:38] VITALS: BP 136/76; PULSE 75; RESP 18; TEMP 36.7; O2SAT 98
--- NOTE | 2019-12-23 09:15 | HMH.ACPN2 ---
<Macie Cedillo - Last Filed: 12/23/19 09:15> Internal Medicine - PN: Subj *Date: 12/23/19 *Time: 09:15 Interval history: Patient states he was awake all night. He did get some sleep yesterday. He did sit on the side of the bed with PT direction. He does not feel like eating. He states his food is always cold. He denies chest pain and shortness of breath. His feet do not hurt. Exam Vital signs and Labs for Last 24 Hours: Temp Pulse Resp BP Pulse Ox 98.0 F 75 18 136/76 98 12/23/19 07:38 12/23/19 07:38 12/23/19 07:38 12/23/19 07:38 12/23/19 07:38 Laboratory Results - last 24 hr 12/22/19 11:37: POC Glucose 144 H 12/22/19 17:01: POC Glucose 157 H 12/22/19 21:58: POC Glucose 125 H 12/23/19 05:21: POC Glucose 91 I & O for Last 24 hours: Intake & Output 12/20/19 12/21/19 12/22/19 12/23/19 11:59 11:59 11:59 11:59 Intake Total 3731 / 3731 1872 / 1872 2178 / 2178 2641 / 2641 Output Total 2250 / 2250 1100 / 1100 1500 / 1500 2500 / 2500 Balance 1481 / 1481 772 / 772 678 / 678 141 / 141 Weight 164 lb 5.321 oz 165 lb 1 oz 165 lb 0.961 oz 168 lb 2 oz - Constitutional no acute distress Comments: Awakened for assessment - *Routine Respiratory Exam Present: CTA bilaterally (Anteriorly and posteriorly) - *Routine Cardiovascular Exam Present: RRR - *Routine Abdominal Exam Present: soft, normoactive bowel sounds. Absent: tenderness - *Routine Extremities Exam Comments: Dressings on bilateral feet are clean and dry - *Routine Neurological Exam Present: alert, oriented X3 Assessment and Plan (1) Altered mental status Current visit: Yes Status: Acute Category: Medical Code(s): R41.82 - Altered mental status, unspecified (2) UTI (urinary tract infection) Current visit: Yes Status: Acute Category: Medical Code(s): N39.0 - Urinary tract infection, site not specified (3) Renal insufficiency Current visit: Yes Status: Acute Category: Medical Code(s): N28.9 - Disorder of kidney and ureter, unspecified (4) Systolic congestive heart failure Problem details: Ejection fraction 35%. Current visit: No Status: Chronic Qualifiers: Heart failure chronicity: chronic Qualified Code(s): I50.22 - Chronic systolic (congestive) heart failure Category: Medical Code(s): I50.20 - Unspecified systolic (congestive) heart failure (5) Type 2 diabetes mellitus with diabetic neuropathy, with long-term current use of insulin Current visit: No Status: Chronic Category: Medical Code(s): E11.40 - Type 2 diabetes mellitus with diabetic neuropathy, unspecified; Z79.4 - nursing home (current) use of insulin (6) Diabetes mellitus with diabetic neuropathy Current visit: No Status: Chronic Qualifiers: Diabetes mellitus type: type 2 Diabetes mellitus remote computer terminal operator insulin use: with remote computer terminal operator use Qualified Code(s): E11.40 - Type 2 diabetes mellitus with diabetic neuropathy, unspecified; Z79.4 - watermelon inspector (current) use of insulin Category: Medical Code(s): E11.40 - Type 2 diabetes mellitus with diabetic neuropathy, unspecified (7) PAD (peripheral artery disease) Current visit: No Status: Chronic Category: Medical Code(s): I73.9 - Peripheral vascular disease, unspecified (8) Mass of spine Current visit: Yes Status: Acute Category: Medical Code(s): M89.8X8 - Other specified disorders of bone, other site - Assessment and plan all Dx Assessment and Plan for all problems:: Patient has been accepted at [facility] when bed becomes available. We will continue with antibiotics and wound care until then. <Sebastian Hebert - Last Filed: 12/23/19 13:32> Internal Medicine - PN: Subj *Date: 12/23/19 *Time: 13:31 Exam Vital signs and Labs for Last 24 Hours: Temp Pulse Resp BP Pulse Ox 98.0 F 75 18 136/76 98 12/23/19 07:38 12/23/19 07:38 12/23/19 07:38 12/23/19 07:38 12/23/19 07:38 Laboratory Results - last
--- NOTE | 2019-12-23 14:53 | PC.NURSE ---
spoke with Bronson, pt son, he states he will be here to pick pt up around 1830 or 193
--- NOTE | 2019-12-23 15:39 | HMH.PHAINT ---
DISCHARGE COUNSELING COMPLETED ON PATIENT. ONLY NEW PRESCRIPTION WAS FOR BACTRIM DS WHICH WAS SENT TO [facility] [place] PATIENT IS TO STOP LEVAQUIN HE WAS TAKING AT HOME. CONTINUING ALL OTHER HOME MEDICATIONS. PATIENT VERBALIZED UNDERSTANDING AND HAD NO QUESTIONS AT THIS TIME. -MI CARPENTER, YUNIORD
[2019-12-23 16:00] VITALS: BP 140/70; PULSE 78; RESP 18; TEMP 36.6; O2SAT 98
[2019-12-23 17:12] LABS: POC Glucose,Bedside 136 (70-110)
[2019-12-23 20:00] VITALS: BP 142/79; PULSE 79; RESP 16; TEMP 36.9; O2SAT 100
--- NOTE | 2019-12-28 15:10 | HMH.DCSUM ---
General - General Admission date:: 12/16/19 <Sebastian Hebert - 12/31/19 10:19> 12/16/19 <Sri Mckeon - 12/28/19 15:21> Discharge date: 12/23/19 <Sri Mckeon - 12/28/19 15:21> HPI HPI: Mr. Allred is a 69-year-old male with a history of diabetes, PVD, and CHF. He was recently [facility] after an admission to Dr. Miles's service with sepsis, hypovolemia, and UTI. He followed up in the office of [facility] on 11/27/2019 and had completed a course of Omnicef and was feeling better. He still had his Dash catheter. He was also being followed by Dr. Flores to assess wound healing from his recent transmetatarsal amputation. The patient states he began feeling poorly the last few days. He developed a headache and some dizziness and according to his family, had some altered mental status. He also had an insertion of a Dash catheter that took place at his home yesterday by home health. They noticed that there was a large amount of blood in his urine. He was brought to the ER for evaluation and he was felt to have a UTI and was admitted. <Sri Mckeon - 12/28/19 15:21> Hospital Course Hospital Course: The patient's mental status did improve as did his dizziness and he began feeling better. His urine was growing gram-negative rods. He had a chest x-ray showing nothing acute and a head CT showing sinus disease but nothing acute. He was admitted and started on Invanz pending sensitivities. He did have an abdominal CT which showed constipation, diffuse thickening of the urinary bladder suspicious for cystitis, and an increased soft tissue density in the right paraspinal region. Radiology recommended an MRI of the thoracic spine. The patient was able to begin eating. His urine culture grew Providencia stuartii which was only intermediately sensitive to the ertapenem, therefore he was changed to Bactrim. An MRI of the thoracic spine was ordered. Care management was consulted to investigate options for placement for the patient as Dr. Flores was concerned about his level of wound care at home. The patient's spinal MRI showed no mass. His blood cultures returned showing no growth. The patient did begin feeling better and his urine cleared. He was unable to work with physical therapy. He was accepted finally at [facility], however a bed was not available. Antibiotics and wound care were continued. He was stable to be discharged home and his son was in agreement to transport him to the rehab hospital when a bed became available later on in the week. <Sri Mckeon - 12/28/19 15:21> Objective Vital signs: Temp Pulse Resp BP Pulse Ox 98.4 F 79 16 142/79 H 100 12/23/19 20:00 12/23/19 20:00 12/23/19 20:00 12/23/19 20:00 12/23/19 20:00 <EmileeSebastian Milad - 12/31/19 10:19> Temp Pulse Resp BP Pulse Ox 98.4 F 79 16 142/79 H 100 12/23/19 20:00 12/23/19 20:00 12/23/19 20:00 12/23/19 20:00 12/23/19 20:00 <Sri Mckeon - 12/28/19 15:21> Narrative: - Constitutional no acute distress Comments: Awakened for assessment - *Routine Respiratory Exam Present: CTA bilaterally (Anteriorly and posteriorly) - *Routine Cardiovascular Exam Present: RRR - *Routine Abdominal Exam Present: soft, normoactive bowel sounds. Absent: tenderness - *Routine Extremities Exam Comments: Dressings on bilateral feet are clean and dry - *Routine Neurological Exam Present: alert, oriented X3 <Sri Mckeon - 12/28/19 15:21> DS: Diagnosis - Discharge Diagnosis (1) Altered mental status Status: Acute (2) UTI (urinary tract infection) Status: Acute (3) Renal insufficiency Status: Acute (4) Systolic congestive heart failure Status: Chronic Problem details: Ejection fraction 35%. (5) Type 2 diabetes mellitus with diabetic neuropathy, with long-term current use of insulin Status: Chronic (6) Diabetes mellitus with diabe
== END 2019-12-23 20:03 | disposition home or self-care (01) ==
LOC: ER 17:18 → 2ND 19:35
PROVIDERS: Admitting Provider Family Medicine; Emergency Provider Family Medicine; PCP Family Medicine; Visit Provider Family Medicine
DX: N39.0 Urinary tract infection, site not specified (principal); I13.0 Hypertensive heart and chronic kidney disease with heart failure and stage 1 through stage 4 chronic kidney disease, or unspecified chronic kidney disease; N18.9 Chronic kidney disease, unspecified; I50.22 Chronic systolic (congestive) heart failure; E11.51 Type 2 diabetes mellitus with diabetic peripheral angiopathy without gangrene; L97.903 Non-pressure chronic ulcer of unspecified part of unspecified lower leg with necrosis of muscle; Z89.422 Acquired absence of other left toe(s); Z89.421 Acquired absence of other right toe(s); Z79.4 Long term (current) use of insulin; I70.25 Atherosclerosis of native arteries of other extremities with ulceration; Z87.891 Personal history of nicotine dependence; D49.2 Neoplasm of unspecified behavior of bone, soft tissue, and skin
CPT/HCPCS: 36415; 70450; 71045; 72157; 74177; 80053; 81001; 82962; 83605; 84484; 85025; 87040; 87086; 87088; 87186; 93005; 96365; 97110; 97140; 97161; 97166; 97530; 97535; 99283; A9576; G0378; J1335; Q9967